=== PATIENT | female | born 1955 | race Caucasian/White ===

== ENCOUNTER 2016-11-01 21:32 | Inpatient (IN) | payer OTHER ==
[~2016-11-01] VITALS: Ht 147.3 cm; Wt 37.5 kg
[~2016-11-01 21:32] MED LIST: SULF-154 PO; Z.0.NO CURRENT MEDS
[2016-11-01 21:42] VITALS: BP 177/79; PULSE 101; RESP 24; TEMP 98.2; O2SAT 100
[2016-11-01] MEDS ORDERED: TRAM50TA PO (21:42)
[2016-11-01] MEDS ORDERED: SODIUM CHLORIDE 0.9% FLUSH 10 ML FLUSH IVF PRN (21:45)
[2016-11-01] MEDS ORDERED: methylPREDNISolone SOD SUCC 125 MG/2 ML VIAL IVP ONE (21:45)
[2016-11-01 22:07] LABS: AUTOMATED NEUTROPHIL # 8.8 TH/MM3 (1.8-7.7); BASOPHIL # 0.1 TH/MM3 (0-0.2); BASOPHIL % 0.5 % (0.0-2.0); EOSINOPHIL % 0.1 % (0.0-4.0); HEMATOCRIT 32.6 % (35.0-46.0); HEMO FLAGS DIFF FINAL; LYMPH % 21.4 % (9.0-44.0); LYMPHOCYTE # 2.6 TH/MM3 (1.0-4.8); MEAN CELL VOLUME 91.6 FL (80.0-100.0); MEAN CORPUSCULAR HEMOGLOBIN 30.5 PG (27.0-34.0); MEAN CORPUSCULAR HGB CONC 33.3 % (32.0-36.0); MONO % 6.1 % (0.0-8.0); NEUT % 71.9 % (16.0-70.0); PLATELET COUNT 433 TH/MM3 (150-450); RED BLOOD COUNT 3.56 MIL/MM3 (4.00-5.30); RED CELL DISTRIBUTION WIDTH 15.7 % (11.6-17.2); WHITE BLOOD COUNT 12.2 TH/MM3 (4.0-11.0)
--- NOTE | 2016-11-01 22:11 | RADRPT ---
EXAM DATE/TIME: 11/01/2016 21:55 [facility] COMPARISON: No previous studies available for comparison. INDICATIONS : Short of breath. MEDICAL HISTORY : None. SURGICAL HISTORY : None. ENCOUNTER: Initial ACUITY: 1 day PAIN SCORE: 6/10 LOCATION: Bilateral chest FINDINGS: Large area of masslike fullness seen in the right hilar region. There is patchy airspace consolidatio n of the right mid and lower lung. Mild patchy infiltrate seen in the left mid lung. There does seem to be some left hilar fullness and left mainstem bronchus narrowing. There is a small right pleural effusion. No effusion seen on the left. No perceptible pneumothorax. Heart size upper limits of normal. CONCLUSION: Bilateral hilar masses and patchy airspace disease, both right larger than left. Also a small right p leural effusion. Jt Jiang MD on November 01, 2016 at 22:07 Board Certified Radiologist. This report was verified electronically.
[2016-11-01] MEDS: RESP: ALBUTEROL 2.5 MG/IPRATROPIUM 0.5 MG NEB (SCH) INH (22:22)
[2016-11-01 22:23] VITALS: O2SAT 100
[2016-11-01] MEDS ORDERED: AZITHROMYCIN INJ 500 MG in SODIUM CHLOR 0.9% 250 ML INJ 250 ML IV ONE (22:30)
[2016-11-01] MEDS ORDERED: cefTRIAXone INJ 1,000 MG in SODIUM CHLORIDE 0.9% INJ 100 ML IV ONE (22:30)
[2016-11-01 22:38] LABS: BICARBONATE 28.2 MEQ/L (21.0-32.0); POTASSIUM 3.7 MEQ/L (3.5-5.1)
[2016-11-01] MEDS ORDERED: HEPARIN SODIUM - IV 10,000 UNITS/10 ML VIAL IV ONE (23:00)
[2016-11-01] MEDS ORDERED: HEPARIN-D5W INJ 250 ML IV SCH (23:00)
[2016-11-01] MEDS ORDERED: LORazepam 2 MG/ML VIAL IV PUSH ONE (23:30)
[2016-11-01 23:41] VITALS: BP 177/79; PULSE 104; RESP 24; O2SAT 100
--- NOTE | 2016-11-01 23:52 | PD ---
HPI Chief Complaint: Respiratory Distress Time Seen by Provider: 21:42 Travel History International Travel<30 days: No Contact w/Intl Traveler<30days: No Traveled to known affect area: No History of Present Illness HPI 61-year-old female comes to the ER due to shortness of breath. She arrives by EMS. She has a smoking history one pack per day. She reports chest pain for today. It has steadily worsened. Onset at rest. A cough is noted along with hot flashes. Cough is productive of white phlegm. Dyspnea on exertion and orthopnea also reported. No similar prior event has occurred. She reports some generalized chest discomfort, moderate, intermittent without provocative factors. PFSH Past Medical History Diminished Hearing: No Hypertension: Yes Immunizations Current: Yes ?: Not Menopausal: Yes : 2 Para: 1 Miscarriage: 0 : 1 Past Surgical History Surgical History: Unable to Obtain Oral Surgery: Yes (ADNOIDS) Social History Alcohol Use: Yes (TWO PER WK) Tobacco Use: Yes (1 PPD) Substance Use: No Allergies-Medications (Allergen,Severity, Reaction): Coded Allergies: *MDRO Multi-Drug Resistant Organism (Verified Allergy, Unknown, 11/01/16) MRSA 12/2012 leg wound Reported Meds & Prescriptions Reported Meds & Active Scripts Active Reported Tramadol (Tramadol HCl) 50 Mg Tab 50 Mg PO Q6H PRN No Current Meds (Miscellaneous Medication) Misc Review of Systems Except as stated in HPI: all other systems reviewed are Neg General / Constitutional: Positive: Other (hot flash) Physical Exam Narrative GENERAL: 61-year-old female pleasant well-nourished well-developed moderate respiratory distress SKIN: Focused skin assessment warm/dry. HEAD: Atraumatic. Normocephalic. EYES: Pupils equal and round. No scleral icterus. No injection or drainage. ENT: No nasal bleeding or discharge. Mucous membranes pink and moist. NECK: Trachea midline. No JVD. CARDIOVASCULAR: Tachycardia. Regular rhythm. RESPIRATORY: Tachypnea. Coarse breath sounds bilaterally. Accessory muscle use. GASTROINTESTINAL: Abdomen soft, non-tender, nondistended. Hepatic and splenic margins not palpable. MUSCULOSKELETAL: No obvious deformities. No clubbing. No cyanosis. No edema. NEUROLOGICAL: Awake and alert. No obvious cranial nerve deficits. Motor grossly within normal limits. Conversational dyspnea PSYCHIATRIC: Appropriate mood and affect; insight and judgment normal. Data Data Last Documented VS Vital Signs Date Time Temp Pulse Resp B/P Pulse Ox O2 Delivery O2 Flow Rate FiO2 11/02/16 01:50 103 24 151/71 94 Nasal Cannula 3 11/01/16 21:42 98.2 Vital signs reviewed Orders Complete Blood Count With Diff (11/01/16 21:42) Basic Metabolic Panel (Bmp) (11/01/16 21:42) Iv Access Insert/Monitor (11/01/16 21:42) Ecg Monitoring (11/01/16 21:42) Oximetry (11/01/16 21:42) Oxygen Administration (11/01/16 21:42) Chest, Single Ap (11/01/16 21:42) Sodium Chloride 0.9% Flush (Ns Flush) (11/01/16 21:45) Methylprednisolone So Succ Inj (Solumedr (11/01/16 21:45) Albuterol-Ipratropium Neb (Duoneb Neb) (11/01/16 21:45) Troponin I (11/01/16 21:45) Blood Culture (11/01/16 22:29) Ceftriaxone Inj (Rocephin Inj) (11/01/16 22:30) Azithromycin Inj (Zithromax Inj) (11/01/16 22:30) B-Type Natriuretic Peptide (11/01/16 22:29) Troponin I (11/01/16 22:29) Heparin Infusion PA.Q1H (11/01/16 22:56) Heparin Inj (Heparin Inj) (11/01/16 23:00) Heparin Inj (Heparin Inj) (11/02/16 05:00) Heparin Inj (Heparin Inj) (11/02/16 05:00) Heparin-D5w Inj (Heparin-D5w Inj) (11/01/16 23:00) Cbc No Diff, Includes Plts (11/04/16 06:00) Act Partial Throm Time (Ptt) (11/02/16 05:56) Occult Blood (Hemoccult) Stool (11/01/16 22:56) Lorazepam Inj (Ativan Inj) (11/01/16 23:30) Furosemide Inj (Lasix Inj) (11/02/16 00:15) Nitroglycerin 2% Oint (Nitroglycerin 2% (11/02/16 00:15) Ct Pulmonary Angiogram (11/02/16 22:30) Iohexol 350 Inj (Omnipaque 350 Inj) (11/02/16 00:21) Admit Order (Ed Use Only) (11/02/16 02:43) Labs Laboratory Tests Test 11/01/16 11/01/16 21:45 22:50 White Blood Count 12.2 TH/MM3 Red Blood Count 3.56 MIL/MM3 Hemoglobin 10.9 GM/DL Hematocrit 32.6 % Mean Corpuscular Volume 91.6 FL Mean Corpuscular Hemoglobin 30.5 PG Mean Corpuscular Hemoglobin 33.3 % Concent Red Cell Distribution Width 15.7 % Platelet Count 433 TH/MM3 Mean Platelet Volume 9.1 FL Neutrophils (%) (Auto) 71.9 % Lymphocytes (%) (Auto) 21.4 % Monocytes (%) (Auto) 6.1 % Eosinophils (%) (Auto) 0.1 % Basophils (%) (Auto) 0.5 % Neutrophils # (Auto) 8.8 TH/MM3 Lymphocytes # (Auto) 2.6 TH/MM3 Monocytes # (Auto) 0.8 TH/MM3 Eosinophils # (Auto) 0.0 TH/MM3 Basophils # (Auto) 0.1 TH/MM3 CBC Comment DIFF FINAL Differential Comment Sodium Level 132 MEQ/L Potassium Level 3.7 MEQ/L Chloride Level 93 MEQ/L Carbon Dioxide Level 28.2 MEQ/L Anion Gap 11 MEQ/L Blood Urea Nitrogen 6 MG/DL Creatinine 0.47 MG/DL Estimat Glomerular Filtration 134 ML/MIN Rate Random Glucose 137 MG/DL Calcium Level 8.9 MG/DL Troponin I 0.42 NG/ML B-Type Natriuretic Peptide 1177 PG/ML MDM Medical Decision Making Medical Screen Exam Complete: Yes Emergency Medical Condition: Yes Medical Record Reviewed: Yes Differential Diagnosis NSTEMI, unstable angina, coronary vasospasm, PE, PTX, aortic dissection, pericarditis, myocarditis, endocarditis, PNA, esophageal disease, aneurysm, musculoskeletal etiologies, anxiety, cocaine/sympathomimetic abuse Narrative Course CBC & BMP Diagram 11/01/16 21:45 BNP 1177 Troponin 0.49 EKG reveals a sinus tachycardia with a rate of 101 ST changes are noted in the precordial leads Last [address] Angiography 11/02/160 Signed Impressions: Service Date/Time: Wednesday, November 02, 2016 00:13 - CONCLUSION: Right lower lobe masses in addition to the extensive metastatic adenopathy within the mediastinum and huge mass or malignant adenopathy in the right hilum. Significant mass effect on the main pulmonary artery and right-sided pulmonary arteries in addition to right main bronchus. Yue Hickey MD Chest X-Ray 11/01/162 Signed Impressions: Service Date/Time: Tuesday, November 01, 2016 21:55 - CONCLUSION: Bilateral hilar masses and patchy airspace disease, both right larger than left. Also a small right pleural effusion. Jt Jiang MD The patient will be admitted due to shortness of breath presumably secondary to intrathoracic masses which are presumably neoplastic in nature. The case was discussed with Dr. Sanchez of cardiothoracic surgery who will evaluate the patient however reports there is no indication for an emergent cardiothoracic surgical intervention at this time with radiation oncology and pulmonology considered appropriate. Case discussed with Dr. Richards of [facility]. Case d/w Dr Doss of who accepted the patient. She was advised of her diagnosis just prior to time of admission. Diagnosis Primary Impression: Dyspnea and respiratory abnormalities Additional Impression: Lung mass Admitting Information Admitting Physician Requests: Admit Roscoe Gomes MD Nov 01, 2016 23:52
[2016-11-02] VITALS (18 sets, daily range): BP systolic 99–156; BP diastolic 56–84; PULSE 91–136; RESP 18–28; TEMP 98–98.7; O2SAT 94–100
[2016-11-02] MEDS ORDERED: NITROGLYCERIN 2% OINT 1 GM PACKET TOP ONE (00:15)
[2016-11-02] MEDS ORDERED: FUROSEMIDE 40 MG/4 ML VIAL IV PUSH ONE (00:15)
[2016-11-02] MEDS ORDERED: IOHEXOL 350 MG/ML 10 ML VIAL (for RAD DIAG) IV ONE (00:21)
--- NOTE | 2016-11-02 00:35 | RADRPT ---
EXAM DATE/TIME: 11/02/2016 00:13 [facility] COMPARISON: No previous studies available for comparison. INDICATIONS : Short of breath. IV CONTRAST: 60 cc Omnipaque 350 (iohexol) IV RADIATION DOSE: 19.86 CTDIvol (mGy) MEDICAL HISTORY : None SURGICAL HISTORY : Right rib resection. ENCOUNTER: Initial ACUITY: 1 day PAIN SCALE: 0/10 LOCATION: Bilateral chest TECHNIQUE: Volumetric scanning of the chest was performed using a pulmonary embolism protocol MIP images were re constructed. Using automated exposure control and adjustment of the mA and/or kV according to patien t size, radiation dose was kept as low as reasonably achievable to obtain optimal diagnostic quality images. FINDINGS: There is no evidence for PE for technique. There is huge malignant mass or adenopathy in the sub carinal area which extends to the right hilum and causes significant mass effect on the right main pu lmonary artery in addition to the upper lobe lower lobe and middle lobe pulmonary arteries compromisi ng the main pulmonary artery but almost 70%. These are almost certainly malignant and there is also a dditional malignant adenopathy in the AP window, precarinal areas with small lymph nodes in the left hilum as well. There are 2 separate masses in the right lower lobe measuring 3.8 cm and 2.8 cm in siz e with additional tiny nodules in the right lower lobe as well. All of these are highly suspicious fo r malignant masses. Vague parenchymal process is present in left upper lobe may represent postobstruc tive pneumonitis. There is significant mass effect on the right main bronchus and mild mass effect on the left main bronchus. CONCLUSION: Right lower lobe masses in addition to the extensive metastatic adenopathy within the mediastinum and huge mass or malignant adenopathy in the right hilum. Significant mass effect on the main pulmonary artery and right-sided pulmonary arteries in addition to right main bronchus. Yue Hickey MD on November 02, 2016 at 0:28 Board Certified Radiologist. This report was verified electronically.
[2016-11-02] MEDS ORDERED: CHLORHEXIDINE GLUCONATE 2 % 1 PACK (2 CLOTHS) TOP PRN (02:45)
[2016-11-02] MEDS ORDERED: SODIUM CHLORIDE 0.9% FLUSH 10 ML FLUSH PRN (02:45)
[2016-11-02] MEDS ORDERED: ACETAMINOPHEN 325 MG TAB PO PRN (02:45)
[2016-11-02] MEDS ORDERED: MAGNESIUM HYDROXIDE SUSP 30 ML CUP PO PRN (02:45)
[2016-11-02] MEDS: SODIUM CHLOR 0.9% 1000 ML INJ 1,000 ML IV SCH ×2 (02:45→14:40)
[2016-11-02] MEDS ORDERED: PROCHLORPERAZINE 25 MG SUPP RECTAL PRN (02:45)
[2016-11-02] MEDS ORDERED: METOCLOPRAMIDE HCL 10 MG/2 ML VIAL IV PRN (02:45)
[2016-11-02] MEDS: HEPARIN SODIUM - SQ 10,000 UNITS/ML VIAL SQ SCH ×2 (02:45→10:45)
[2016-11-02] MEDS ORDERED: BISACODYL 10 MG SUPP RECTAL PRN (02:45)
[2016-11-02] MEDS ORDERED: LACTULOSE SYRUP 20 GM/30 ML CUP PO PRN (02:45)
[2016-11-02] MEDS ORDERED: SENNOSIDES 8.6 MG TAB PO PRN (02:45)
[2016-11-02] MEDS ORDERED: ONDANSETRON HCL 4 MG/2 ML VIAL IV PRN (02:45)
[2016-11-02] MEDS ORDERED: RESP: ALBUTEROL 2.5 MG/IPRATROPIUM 0.5 MG NEB (PRN) INH (02:45)
[2016-11-02] MEDS ORDERED: ZOLPIDEM TARTRATE 5 MG TAB PO PRN (02:45)
[2016-11-02] MEDS ORDERED: MISCELLANEOUS NURSING INFORMATION XX SCH (02:45)
--- NOTE | 2016-11-02 02:52 | HHI.HP ---
HPI Service Critical Care Medicine Primary Care Physician No Primary Care Physician Admission Diagnosis Lung Masses, Dyspnea Diagnosis: Travel History International Travel<30 Days: No Contact w/Intl Traveler <30 Da: No Traveled to Known Affected Are: No History of Present Illness 61-year-old female presents due to shortness of breath. She arrives by EMS. She has a smoking history one pack per day. She reports chest pain for today. Her shortness of breath has steadily worsened. A cough is noted along with hot flashes. Cough is productive of white phlegm. She has no similar history prior to this event. CT of the chest revealed Right lower lobe masses in addition to the extensive metastatic adenopathy within the mediastinum and huge mass or malignant adenopathy in the right hilum. Significant mass effect on the main pulmonary artery and right-sided pulmonary arteries in addition to right main bronchus. Review of Systems Constitutional: DENIES: Diaphoretic episodes, Fatigue, Fever, Weight gain, Weight loss, Chills, Dizziness, Change in appetite, Night Sweats Endocrine: DENIES: Abnorml menstrual pattern, Heat/cold intolerance, Polydipsia , Polyuria, Polyphagia Eyes: DENIES: Blurred vision, Diplopia, Eye inflammation, Eye pain, Vision loss , Photosensitivity, Double Vision Ears, nose, mouth, throat: DENIES: Tinnitus, Hearing loss, Vertigo, Nasal discharge, Oral lesions, Throat pain, Hoarseness, Ear Pain, Running Nose, Epistaxis, Sinus Pain, Toothache, Odynophagia Respiratory: COMPLAINS OF: Cough, Sputum production, Shortness of breath, DENIES: Apneas, Snoring, Wheezing, Hemoptysis Cardiovascular: COMPLAINS OF: Chest pain, Dyspnea on Exertion, DENIES: Palpitations, Syncope, PND, Lower Extremity Edema, Orthopnea, Claudication Gastrointestinal: DENIES: Abdominal pain, Black stools, Bloody stools, Constipation, Diarrhea, Nausea, Vomiting, Difficulty Swallowing, Anorexia Genitourinary: DENIES: Abnormal vaginal bleeding, Dysmenorrhea, Dyspareunia, Sexual dysfunction, Urinary frequency, Urinary incontinence, Urgency, Hematuria , Dysuria, Nocturia, Vaginal discharge Musculoskeletal: DENIES: Joint pain, Muscle aches, Stiffness, Joint Swelling, Back pain, Neck pain Integumentary: DENIES: Abnormal pigmentation, Pruritus, Rash, Nail changes, Breast masses, Breast skin changes, Nipple discharge Hematologic/lymphatic: DENIES: Bruising, Lymphadenopathy Immunologic/allergic: DENIES: Eczema, Urticaria Neurologic: DENIES: Abnormal gait, Headache, Localized weakness, Paresthesias, Seizures, Speech Problems, Tremor, Poor Balance Psychiatric: DENIES: Anxiety, Confusion, Mood changes, Depression, Hallucinations, Agitation, Suicidal Ideation, Homicidal Ideation, Delusions Past Family Social History Allergies: Coded Allergies: *MDRO Multi-Drug Resistant Organism (Verified Allergy, Unknown, 11/01/16) MRSA 12/2012 leg wound Past Medical History Hypertension Past Surgical History Oral Surgery Adenoids removal Reported Medications Reported Meds & Active Scripts Active Reported Tramadol (Tramadol HCl) 50 Mg Tab 50 Mg PO Q6H PRN No Current Meds (Miscellaneous Medication) Misc Active Ordered Medications Current Medications Medications (Trade) Dose Ordered Sig/Estela Route PRN Reason Start Time Stop Time Status Last Admin Dose Admin Sodium Chloride 2 ml 2 ml UNSCH PRN IVF FLUSH AFTER USING IV ACCESS 11/01/16 21:45 11/01/16 22:29 Sodium Chloride (NS 1000 ml Inj) 1,000 ml @ 84 mls/hr [id number] IV 11/02/16 02:45 11/02/16 02:45 Sodium Chloride (NS Flush) 2 ml UNSCH PRN .XX FLUSH AFTER USING IV ACCESS 11/02/16 02:45 Sodium Chloride (NS Flush) 2 ml BID IV FLUSH 11/02/16 09:00 Acetaminophen (Tylenol) 650 mg Q6H PRN PO PAIN 1-5 AND/OR FEVER >101F 11/02/16 02:45 Morphine Sulfate (Morphine Inj) 2 mg Q2H PRN IV PAIN SCALE 6 TO 10 11/02/16 02:45 Famotidine (Pepcid Inj) 20 mg Q12HR IV PUSH 11/02/16 09:00 Lorazepam (Ativan Inj) 2 mg Q4H PRN IV Agitation/Sedation 11/02/16 02:45 Ondansetron HCl (Zofran Inj) 4 mg Q6H PRN IV NAUSEA OR VOMITING 11/02/16 02:45 Metoclopramide HCl (Reglan Inj) 10 mg Q6H PRN IV NAUSEA OR VOMITING 11/02/16 02:45 Prochlorperazine (Compazine Supp) 25 mg Q12H PRN RECTAL NAUSEA OR VOMITING 11/02/16 02:45 Zolpidem Tartrate (Ambien) 5 mg HS PRN PO INSOMNIA 11/02/16 02:45 Heparin Sodium (Porcine) (Heparin Inj) 5,000 units Q8H SQ 11/02/16 02:45 Miscellaneous Information 1 Q361D XX 11/02/16 02:45 Chlorhexidine Gluconate (Chlorhexidine 2% Cloth) 3 pack Taper DAILY@04 TOP 11/02/16 04:00 10/29/17 03:59 Chlorhexidine Gluconate (Chlorhexidine 2% Cloth) 3 pack UNSCH PRN TOP HYGIENIC CARE 11/02/16 02:45 Senna/Docusate Sodium (Jonelle-Colace) 1 tab BID PO 11/02/16 09:00 Magnesium Hydroxide (Milk Of Magnesia Liq) 30 ml Q12H PRN PO MILD - MODERATE CONSTIPATION 11/02/16 02:45 Sennosides (Senokot) 17.2 mg Q12H PRN PO MODERATE - SEVERE CONSTIPATION 11/02/16 02:45 Bisacodyl (Dulcolax Supp) 10 mg DAILY PRN RECTAL SEVERE CONSITIPATION 11/02/16 02:45 Lactulose (Lactulose Liq) 30 ml DAILY PRN PO SEVERE CONSITIPATION 11/02/16 02:45 Family History Noncontributory Social History Alcohol Use: Yes (TWO PER WK) Tobacco Use: Yes (1 PPD) Substance Use: No Physical Exam Vital Signs Vital Signs Date Time Temp Pulse Resp B/P Pulse Ox O2 Delivery O2 Flow Rate FiO2 11/02/16 01:50 103 24 151/71 94 Nasal Cannula 3 11/02/16 00:45 103 24 116/58 98 Nasal Cannula 3 11/01/16 23:41 104 24 177/79 100 Nasal Cannula 11/01/16 22:46 80 88 Non-Rebreather 11/01/16 22:23 100 Nasal Cannula 3.00 11/01/16 21:49 100 Non-Rebreather 8 11/01/16 21:42 98.2 101 24 177/79 100 Physical Exam GENERAL: Cachectic, sick, and pale pleasant female in no acute distress SKIN: Warm and dry. HEAD: Normocephalic. EYES: No scleral icterus. No injection or drainage. NECK: Supple, trachea midline. No JVD or lymphadenopathy. CARDIOVASCULAR: Regular rate and rhythm without murmurs, gallops, or rubs. RESPIRATORY: Breath sounds equal bilaterally. No accessory muscle use. GASTROINTESTINAL: Abdomen soft, non-tender, nondistended. MUSCULOSKELETAL: No cyanosis, or edema. BACK: Nontender without obvious deformity. No CVA tenderness. EXTREMITIES: No clubbing cyanosis or edema Laboratory Laboratory Tests Test 11/01/16 11/01/16 21:45 22:50 White Blood Count 12.2 Red Blood Count 3.56 Hemoglobin 10.9 Hematocrit 32.6 Mean Corpuscular Volume 91.6 Mean Corpuscular Hemoglobin 30.5 Mean Corpuscular Hemoglobin 33.3 Concent Red Cell Distribution Width 15.7 Platelet Count 433 Mean Platelet Volume 9.1 Neutrophils (%) (Auto) 71.9 Lymphocytes (%) (Auto) 21.4 Monocytes (%) (Auto) 6.1 Eosinophils (%) (Auto) 0.1 Basophils (%) (Auto) 0.5 Neutrophils # (Auto) 8.8 Lymphocytes # (Auto) 2.6 Monocytes # (Auto) 0.8 Eosinophils # (Auto) 0.0 Basophils # (Auto) 0.1 CBC Comment DIFF FINAL Differential Comment Sodium Level 132 Potassium Level 3.7 Chloride Level 93 Carbon Dioxide Level 28.2 Anion Gap 11 Blood Urea Nitrogen 6 Creatinine 0.47 Estimat Glomerular Filtration 134 Rate Random Glucose 137 Calcium Level 8.9 Troponin I 0.42 B-Type Natriuretic Peptide 1177 Date/Time Procedure Status Source Growth 11/01/16 23:15 Aerobic Blood Culture Received Blood Peripheral Pending 11/01/16 23:15 Anaerobic Blood Culture Received Blood Peripheral Pending Result Diagram: 11/01/16214411/01/162144 Imaging Last [address] Angiography 11/02/162229 Signed Impressions: Service Date/Time: Wednesday, November 02, 2016 00:13 - CONCLUSION: Right lower lobe masses in addition to the extensive metastatic adenopathy within the mediastinum and huge mass or malignant adenopathy in the right hilum. Significant mass effect on the main pulmonary artery and right-sided pulmonary arteries in addition to right main bronchus. Yue Hickey MD Chest X-Ray 11/01/162141 Signed Impressions: Service Date/Time: Tuesday, November 01, 2016 21:55 - CONCLUSION: Bilateral hilar masses and patchy airspace disease, both right larger than left. Also a small right pleural effusion. Jt Jiang MD Assessment and Plan Assessment and Plan Respiratory failure - Lung mass - DuoNeb scheduled and when necessary - IV steroids Newly diagnosed lung mass - Compromise of pulmonary artery and mainstem bronchus - Pulmonary consultation - Radiation oncology consultation - Further workup per victim advocate History of hypertension - Currently normotensive - Telemetry Elevated troponins - Borderline troponin leak - Possibly due to respiratory compromise - Cardiology consult DVT GI prophylaxis - Subcutaneous heparin and Pepcid Critical Care: The total critical care time was 35 minutes. Time to perform other separately billable procedures was not included in the critical care time. Edilson Doss MD Nov 02, 2016 02:52
[2016-11-02] MEDS ORDERED: NICOTINE 21 MG/24 HR PATCH T-DERMAL ONE (03:15)
[2016-11-02] MEDS: RESP: ALBUTEROL 2.5 MG/IPRATROPIUM 0.5 MG NEB (SCH) INH ×4 (04:34→22:00)
[2016-11-02 04:35] LABS: INTERNATIONAL NORMALIZED RATIO 1.1 RATIO; PROTHROMBIN TIME - PATIENT 11.8 SEC (9.8-11.6)
[2016-11-02] MEDS ORDERED: HEPARIN SODIUM - IV 10,000 UNITS/10 ML VIAL IV PRN ×2 (05:00)
[2016-11-02 05:24] LABS: APTT (PATIENT) 38.3 SEC (24.3-30.1)
[2016-11-02] MEDS ORDERED: ATEN50TA PO (05:51)
[2016-11-02] MEDS: MORPHINE SULFATE 4 MG/ML INJ IV PRN ×2 (06:11→21:46)
--- NOTE | 2016-11-02 07:48 | EKG ---
Date Performed: 11/02/2016 Time Performed: 06:03:34 PTAGE: 61 years EKG: ATRIAL FIBRILLATION WITH RAPID VENTRICULAR RESPONSE VOLTAGE CRITERIA FOR LVH Nonspecific ST -T wave changes NO PREVIOUS TRACING DOCTOR: Saravanan Hull Interpretating Date/Time 11/02/2016 07:48:19
--- NOTE | 2016-11-02 07:56 | EKG ---
Date Performed: 11/01/2016 Time Performed: 21:46:47 PTAGE: 61 years EKG: SINUS TACHYCARDIA LEFT ATRIAL ENLARGEMENT SEPTAL MYOCARDIAL INFARCTION Nonspecific ST-T wav e changes NO PREVIOUS TRACING DOCTOR: Saravanan Hull Interpretating Date/Time 11/02/2016 07:54:41
[2016-11-02] MEDS: DOCUSATE SODIUM 50 MG/SENNA 8.6 MG TAB PO SCH ×2 (09:00→21:00)
[2016-11-02] MEDS ORDERED: DIGOXIN 0.5 MG/2 ML VIAL IV PUSH ONE (09:15)
[2016-11-02] MEDS: FAMOTIDINE 20 MG/2 ML VIAL IV PUSH SCH ×2 (09:35→21:42)
[2016-11-02] MEDS: SODIUM CHLORIDE 0.9% FLUSH 10 ML FLUSH IV FLUSH SCH ×2 (09:35→21:41)
[2016-11-02] MEDS ORDERED: METOPROLOL TARTRATE 5 MG/5 ML VIAL IV PUSH ONE (10:00)
[2016-11-02] MEDS ORDERED: DEXTROSE 50% IN WATER 50 ML VIAL(D50) IV PRN (11:15)
[2016-11-02] MEDS ORDERED: GLUCAGON 1 MG/ML VIAL OTHER PRN (11:15)
[2016-11-02] MEDS: INSULIN NovoLIN REGULAR SUPPLEMENTAL SCALE SQ SCH ×2 (12:00→18:00)
[2016-11-02] MEDS ORDERED: ASPIRIN 325 MG TAB PO ONE (12:00)
[2016-11-02 12:43] LABS: APTT (PATIENT) 33.1 SEC (24.3-30.1)
--- NOTE | 2016-11-02 13:00 | MB ---
cc: COLIN SARKAR MD DATE OF CONSULTATION 11/02/2016 REASON FOR CONSULTATION Elevated troponin. HISTORY OF PRESENT ILLNESS Ms. Perales is a 61-year-old female who presented to the hospital with progressive shortness of breath. She was found to be in A-fib/RVR. She was treated with some IV metoprolol with some improvement. Cardiac enzymes did reveal an elevated troponin and cardiology was subsequently consulted. PAST MEDICAL HISTORY Significant for - 1. MRSA of a leg wound. 2. Hypertension. SOCIAL HISTORY The patient does have occasional alcohol. She does smoke one pack per day. REVIEW OF SYSTEMS Except as mentioned in the HPI, all 12 systems are negative. FAMILY HISTORY Noncontributory. PHYSICAL EXAMINATION VITAL SIGNS: 103, 18, 125/60. IN GENERAL: She is an emaciated female who appears much older than her stated age. She is in no apparent distress. NECK: Her neck is free from JVD. LUNGS: Scattered rhonchi. CARDIOVASCULAR EXAMINATION: She has a normal S1 and S2. She is a bit tachycardic. ABDOMEN: Soft. EXTREMITIES: Free from edema. CT CHEST From 11/02/2016 shows a huge mass or malignant adenopathy in the right hilum with right lower lobe masses. The mass does effect the pulmonary artery and right mainstem bronchus. LABORATORY VALUE Significant for a white count of 12.2. Serial troponins of 0.42/0.52 with a BNP of 1177. IMPRESSION AND PLAN Atrial fibrillation with rapid ventricular rate - The patient did respond to IV medications which included metoprolol and digoxin. Hopefully she will be able to tolerate low-dose metoprolol. Her CHADS-VASc score 2 with 1 point for being female and 1 point for hypertension. Anticoagulation would typically be suggested. She would have fairly extensive risk given her anemia and this large mass for bleeding complications. Thus, long-term anticoagulation is somewhat controversial. She is currently on a heparin drip. Lung mass. - This will be managed by the primary team. Hypertension - Metoprolol as above. Colin Sarkar M.D. SYDNEE/JORGE /11:49 AM /12:38 PM
[2016-11-02] MEDS: PIPERACIL-TAZO 4.5 GM PREMIX 100 ML IV SCH (13:33)
[2016-11-02] MEDS: methylPREDNISolone SOD SUCC 40 MG/1 ML VIAL IV PUSH SCH ×2 (13:33→21:43)
[2016-11-02 17:47] LABS: AUTOMATED NEUTROPHIL # 12.5 TH/MM3 (1.8-7.7); BASOPHIL % 0.3 % (0.0-2.0); EOSINOPHIL # 0.2 TH/MM3 (0-0.4); EOSINOPHIL % 0.9 % (0.0-4.0); HEMATOCRIT 31.6 % (35.0-46.0); LYMPH % 2.3 % (9.0-44.0); LYMPHOCYTE # 0.4 TH/MM3 (1.0-4.8); MEAN CELL VOLUME 92.9 FL (80.0-100.0); MEAN CORPUSCULAR HEMOGLOBIN 29.9 PG (27.0-34.0); MEAN CORPUSCULAR HGB CONC 32.2 % (32.0-36.0); MONO % 21.4 % (0.0-8.0); NEUT % 75.1 % (16.0-70.0); PLATELET COUNT 420 TH/MM3 (150-450); RED CELL DISTRIBUTION WIDTH 16.1 % (11.6-17.2); WHITE BLOOD COUNT 16.6 TH/MM3 (4.0-11.0)
[2016-11-02 17:50] LABS: HEMO FLAGS AUTO DIFF
[2016-11-02 18:08] LABS: ALT (GPT) 12 U/L (10-53); ANION GAP 10 MEQ/L (5-15); AST (GOT) 47 U/L (15-37); BICARBONATE 26.5 MEQ/L (21.0-32.0); BLOOD UREA NITROGEN 8 MG/DL (7-18); CHLORIDE 98 MEQ/L (98-107); GLOMERULAR FILTRATION RATE 157 ML/MIN (>89); MAGNESIUM 1.7 MG/DL (1.5-2.5); SODIUM (NA) 134 MEQ/L (136-145)
[2016-11-02 18:09] LABS: POTASSIUM 4.3 MEQ/L (3.5-5.1)
[2016-11-02 18:12] LABS: ALKALINE PHOSPHATASE 131 U/L (45-117); TOTAL BILIRUBIN ADULT 0.4 MG/DL (0.2-1.0)
[2016-11-02 18:13] LABS: PLATELET ESTIMATE SMEAR HIGH (NORMAL); PLATELET MORPHOLOGY NORMAL (NORMAL); SCAN/DIFF AUTO DIFF CONFIRMED
--- NOTE | 2016-11-02 18:22 | MB ---
cc: HARINI WAN M.D., JAN MD DATE OF CONSULTATION 11/02/2016 DATE OF 1955 HISTORY OF PRESENT ILLNESS This is a 61-year-old patient with a long smoking history who was admitted to the hospital with what appears to be a short onset of symptoms of increasing shortness of breath. Unfortunately she is a poor historian but she indicates that she has had anterior chest pain for some time. This has progressed to increasing shortness of breath. She has a cough that appears to be largely nonproductive and she denies hemoptysis. Because of increasing shortness of breath she came into the emergency room. At that time she was assessed and a CT pulmonary angiogram was performed. This revealed right lower lobe masses in addition to extensive metastatic adenopathy within the mediastinum with a huge mass or malignant adenopathy in the right hilum. There is significant mass effect on the main pulmonary artery and right-sided pulmonary arteries in addition to the right main bronchus. There are two separate masses in the right lower lobe measuring 3.8 and 2.8 cm in size. The main pulmonary artery is compressed by almost 70%. This lady has been admitted to the hospital and stabilized. She has not yet been seen by pulmonary and she has not had a biopsy or tissue obtained. She denies other symptoms that would be suggestive of metastatic disease. ALLERGIES None known. PAST MEDICAL AND SURGICAL HISTORY Includes: 1. History of hypertension. 2. She has had previous adenoid surgery. 3. And she has had a previous wound infection with MRSA organism. This was in 2012. MEDICATIONS ON ADMISSION Include Tramadol. FAMILY HISTORY AND SOCIAL HISTORY This lady lives locally with her daughter. She has a 3-year-old grandchild. She has lived in this area since grade 4. She does smoke and has smoked until this admission. She denies significant alcohol use. REVIEW OF SYSTEMS CONSTITUTIONAL: She admits to weight loss of 15-20 pounds since . She denies fevers, sweats. EYES: She denies blurred vision or eye pain. EARS, NOSE, AND THROAT: Denies tinnitus, hearing loss or throat pain. RESPIRATORY: She does have cough with clear sputum. No hemoptysis and shortness of breath. CARDIOVASCULAR: She has anterior chest pain and shortness of breath. Denies palpitations or syncope. GASTROINTESTINAL: Denies abdominal pain, diarrhea, melena or bloody stool. GENITOURINARY: Denies dysuria, hematuria, urgency or incontinence. MUSCULOSKELETAL: Denies arthritic or back pain. HEMATOLOGIC: Denies bruising or bleeding. NEUROLOGIC: Denies abnormal gait, weakness, paresthesias, seizures or strokes. PSYCHIATRIC: Denies depression or mood swings. PHYSICAL EXAMINATION GENERAL: Today on exam we have an alert, oriented female resting comfortably in bed and in no immediate distress. VITAL SIGNS: Her pulse was 95, respiratory rate 18, blood pressure 156/73. Her O2 sat on room air was 98% while resting comfortably in bed. HEENT: She was pale and somewhat cachectic. There was no jaundice. Her conjunctive and eyelids are normal. Oral cavity was normal. LYMPHATICS: There is no adenopathy in her head and neck. LUNGS: She has markedly decreased air entry in to her right lung. Her left lung field is clear. CARDIOVASCULAR: She had a normal first and second heart sound without murmurs, rubs or bruits. ABDOMEN: There are no abdominal masses or tenderness, no hepatosplenomegaly. EXTREMITIES: No ankle edema. Power testing in all limbs was normal. IMAGING Review of data, I have been able to pull up this lady's us pulmonary angiogram and review this on the monitor and I can confirm the findings that have been indicated above. She has a very large mass involving the right hilum, compressing the pulmonary artery on the right. In association with this. She has a separate right lower lobe lung mass as dictated above. This is very extensive disease involving the right lung with significant compression of the pulmonary artery. DISCUSSION I have reviewed the findings with the patient. I have told her that we strongly believe she has cancer and that, however, we do need to confirm this with tissue. She is scheduled to see a hot tamale worker and I would anticipate consideration for a needle biopsy but we will wait their recommendation. With respect to treatment because of the size of the mass and the compression of the pulmonary artery, I believe serious consideration should be given to radiation treatment and hopefully combination radiation treatment and chemotherapy. I see that a consult has been scheduled for medical oncology and we will wait their input with respect to combined treatment. Unfortunately she has very advanced disease. Her prognosis is poor. I am concerned since she had fairly rapid progression of her shortness of breath over the past week, that she may deteriorate so I intend on simulating her before we have final pathology so that we can have most of our calculations complete and when pathology is available we should be in a position to start treatment promptly. I have discussed this with her and she is comfortable with that approach. I will keep following her while she is in the hospital and make any recommendations as new data comes available. Thank you again for asking us to see this patient. MD WOLF Francisco/ITZEL /5:40 PM /5:59 PM
--- NOTE | 2016-11-02 19:36 | MB ---
cc: COLBY CLARK DATE OF CONSULTATION 11/02/2016 DATE OF 1955 REASON FOR CONSULTATION Patient with multiple lung lesions. CHIEF COMPLAINT Admitted with weakness, heart palpitations and chest pain. HISTORY OF PRESENT ILLNESS This is a 61-year-old female with an extensive history of tobacco abuse, hypertension who was brought to the emergency department with complaints of chest pain, shortness of breath, cough productive of white phlegm, night sweats and weight loss. On admission she underwent imaging of the chest. This was a CT angiogram to rule out pulmonary embolism. No pulmonary embolism was seen, however, there was a huge malignant mass in the subcarinal area which extended into the right hilum causing significant mass effect on the right main pulmonary artery in addition to the upper lobe, lower lobe and middle lobe pulmonary arteries comprising the main pulmonary artery by almost 70%. There was additional malignant adenopathy in the AP window precarinal area with small lymph nodes in the left hilum. There were two separate masses in the right lower lobe measuring 3.8 cm and 2.8 cm in size with additional tiny nodule in the right lower lobe. There was significant mass effect on the right main bronchus and mild mass effect on the left main bronchus. The patient is currently undergoing cardiac workup for atrial fibrillation. She has been seen by cardiology. The patient responded to IV metoprolol and digoxin. She will need anticoagulation. Oncology has been consulted to make recommendations in this patient who appears to have bronchogenic carcinoma with significant tumor load. REVIEW OF SYSTEMS A comprehensive 14-point review of systems was completed which is negative except as described in the HPI. PAST MEDICAL HISTORY 1. Hypertension. 2. Tobacco abuse. 3. History of wound infection with MRSA in 2012. PAST SURGICAL HISTORY History of adenoid surgery. MEDICATIONS 1. Metoprolol 12.5 mg p.o. q.12h. 2. Solu-Medrol 60 mg IV q.8 h. 3. Zosyn IV q.6h. 4. Insulin sliding scale. 5. Famotidine 20 mg IV q.12h. 6. Senna and Docusate p.o. b.i.d. 7. DuoNeb treatments q.6h. 8. Morphine injection 2 mg IV q.2 h. 9. Zofran 4 mg IV q.6 h p.r.n. 10. Reglan 10 mg IV q.6 h p.r.n. 11. Compazine 25 mg q.12 h p.r.n. 12. Ambien 5 mg p.o. q.h.s. p.r.n. ALLERGIES NO KNOWN DRUG ALLERGIES. SOCIAL HISTORY She lives with her daughter. She has a 3-year-old grandchild. She has an extensive history of smoking of greater than 30 pack-years. She does not drink alcohol. FAMILY HISTORY The family history was reviewed and it is noncontributory to this admission. PHYSICAL EXAMINATION VITAL SIGNS: Blood pressure is 156/73, pulse is in the 90s, temperature is 98.6, O2 sats are 98% on room air. GENERAL: Cachectic, ill-appearing female in mild distress. HEENT: Pupils are equal, round, reactive to light. EOMI. No oral thrush. No oral lesion. NECK: Supple. No JVD, no bruits. No lymphadenopathy. CHEST: Has by diffuse rhonchi which is scattered. Some expiratory wheezing in the bilateral upper garrett on expiration. CARDIOVASCULAR: Irregularly irregular heart rate. ABDOMEN: Soft, nontender, nondistended. Bowel sounds are present. EXTREMITIES: Without any edema, erythema or cyanosis. SKIN: Without any petechiae, lesion or bruises. NEUROLOGIC: No focal deficits. PSYCHIATRIC: Mood and affect are appropriate. LYMPH NODE: Exam was no lymphadenopathy appreciated. LABORATORY DATA WBC 16.6, hemoglobin 10.2, MCV is 92.9, platelet count 420. Serum chemistries show sodium 134, potassium 4.3, chloride 98, BUN 8, creatinine 0.41, calcium 8.8, phosphorus 2.2, total bilirubin 0.4, AST is 47, ALT is 12, alk phos is 131. BNP is 746. Total protein 7.1. Albumin is 2.5. IMAGING STUDIES Were reviewed in the EMR and discussed in the HPI above. ASSESSMENT/PLAN This is a 61-year-old female who has with a history of tobacco abuse and hypertension who presents to the emergency room with chest pain, shortness of breath, anorexia, cachexia, weight loss and night sweats. She also has a cough productive of clear sputum. She was found to have multiple masses in her lung based on the imaging. I have been consulted to make further recommendations. 1. Right lower lobe mass with extensive metastatic adenopathy within the mediastinum and a large mass in the right hilum. Also significant mass effect on the main pulmonary artery and the right-sided pulmonary artery and right main bronchus. This is highly suspicious for bronchogenic carcinoma. We need to obtain a biopsy. We will ask interventional radiology for CT-guided biopsy of the mediastinal mass. Due to bulky disease in her chest, she is at risk for acute decompensation. Depending on the pathology of the disease I will consider giving her chemotherapy Audio ended at this point. MD KEIKO Jeong/ITZEL /6:44 PM /7:13 PM
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
[2016-11-02] MEDS ORDERED: DILTIAZEM INJ 125 MG in SODIUM CHLORIDE 0.9% INJ 100 ML IV SCH (21:00)
[2016-11-02] MEDS: BUDESONIDE-FORMOTEROL 160/4.5 MCG INHALER INH SCH (21:41)
[2016-11-02] MEDS: METOPROLOL TARTRATE 25 MG TAB PO SCH (21:42)
[2016-11-02] MEDS: CHLORHEXIDINE GLUCONATE 2 % 1 PACK (2 CLOTHS) TOP SCH (21:43)
[2016-11-03] VITALS (16 sets, daily range): BP systolic 107–198; BP diastolic 70–92; PULSE 75–111; RESP 23–24; TEMP 97.7–98.3; O2SAT 83–100
[2016-11-03] MEDS: PIPERACIL-TAZO 4.5 GM PREMIX 100 ML IV SCH ×5 (00:16→23:56)
[2016-11-03] MEDS: SODIUM CHLOR 0.9% 1000 ML INJ 1,000 ML IV SCH (00:17)
[2016-11-03] MEDS: MORPHINE SULFATE 4 MG/ML INJ IV PRN ×5 (00:23→13:03)
[2016-11-03] MEDS: RESP: ALBUTEROL 2.5 MG/IPRATROPIUM 0.5 MG NEB (SCH) INH ×4 (03:19→20:06)
[2016-11-03] MEDS: HEPARIN SODIUM - SQ 10,000 UNITS/ML VIAL SQ SCH ×3 (03:34→18:25)
[2016-11-03] MEDS: METOPROLOL TARTRATE 5 MG/5 ML VIAL IV PUSH PRN ×2 (03:35→09:04)
[2016-11-03 04:32] LABS: AUTOMATED NEUTROPHIL # 15.4 TH/MM3 (1.8-7.7); BASOPHIL % 0.1 % (0.0-2.0); HEMATOCRIT 33.4 % (35.0-46.0); HEMO FLAGS DIFF FINAL; INTERNATIONAL NORMALIZED RATIO 1.1 RATIO; LYMPH % 3.1 % (9.0-44.0); LYMPHOCYTE # 0.5 TH/MM3 (1.0-4.8); MEAN CELL VOLUME 92.4 FL (80.0-100.0); MEAN CORPUSCULAR HEMOGLOBIN 30.1 PG (27.0-34.0); MEAN CORPUSCULAR HGB CONC 32.6 % (32.0-36.0); NEUT % 95.8 % (16.0-70.0); PLATELET COUNT 428 TH/MM3 (150-450); RED BLOOD COUNT 3.61 MIL/MM3 (4.00-5.30); WHITE BLOOD COUNT 16.1 TH/MM3 (4.0-11.0)
[2016-11-03 04:41] LABS: ANION GAP 12 MEQ/L (5-15); AST (GOT) 29 U/L (15-37); BLOOD UREA NITROGEN 8 MG/DL (7-18); CHLORIDE 95 MEQ/L (98-107); POTASSIUM 3.4 MEQ/L (3.5-5.1); SODIUM (NA) 135 MEQ/L (136-145)
[2016-11-03 04:45] LABS: ALKALINE PHOSPHATASE 127 U/L (45-117); ALT (GPT) 12 U/L (10-53); GLOMERULAR FILTRATION RATE 162 ML/MIN (>89); TOTAL BILIRUBIN ADULT 0.3 MG/DL (0.2-1.0)
[2016-11-03] MEDS: methylPREDNISolone SOD SUCC 40 MG/1 ML VIAL IV PUSH SCH ×3 (05:54→20:39)
[2016-11-03] MEDS: INSULIN NovoLIN REGULAR SUPPLEMENTAL SCALE SQ SCH ×5 (05:57→20:00)
[2016-11-03] MEDS: DOCUSATE SODIUM 50 MG/SENNA 8.6 MG TAB PO SCH ×2 (07:42→19:59)
[2016-11-03] MEDS: METOPROLOL TARTRATE 25 MG TAB PO SCH ×3 (07:42→20:40)
[2016-11-03] MEDS: FAMOTIDINE 20 MG/2 ML VIAL IV PUSH SCH ×2 (07:43→19:59)
--- NOTE | 2016-11-03 08:01 | PD.CARD.PN ---
Subjective Subjective Remarks PT c/o SHOB Objective Medications Current Medications Medications (Trade) Dose Ordered Sig/Estela Route Start Time Stop Time Status Last Admin Sodium Chloride 2 ml 2 ml UNSCH PRN IVF 11/01/16 21:45 11/01/16 22:29 (NS 1000 ml Inj) 1,000 ml @ 84 mls/hr [id number] IV 11/02/16 02:45 11/03/16 00:17 (NS Flush) 2 ml UNSCH PRN .XX 11/02/16 02:45 11/03/16 03:35 (NS Flush) 2 ml BID IV FLUSH 11/02/16 09:00 11/02/16 21:41 (Tylenol) 650 mg Q6H PRN PO 11/02/16 02:45 (Morphine Inj) 2 mg Q2H PRN IV 11/02/16 02:45 11/03/16 00:23 (Pepcid Inj) 20 mg Q12HR IV PUSH 11/02/16 09:00 11/03/16 07:43 (Ativan Inj) 2 mg Q4H PRN IV 11/02/16 02:45 (Zofran Inj) 4 mg Q6H PRN IV 11/02/16 02:45 (Reglan Inj) 10 mg Q6H PRN IV 11/02/16 02:45 (Compazine Supp) 25 mg Q12H PRN RECTAL 11/02/16 02:45 (Ambien) 5 mg HS PRN PO 11/02/16 02:45 (Heparin Inj) 5,000 units Q8H SQ 11/02/16 02:45 11/03/16 03:34 Miscellaneous Information 1 [id number] XX 11/02/16 02:45 (Chlorhexidine 2% Cloth) 3 pack Taper DAILY@04 TOP 11/02/16 04:00 10/29/17 03:59 11/02/16 21:43 (Chlorhexidine 2% Cloth) 3 pack UNSCH PRN TOP 11/02/16 02:45 (Jonelle-Colace) 1 tab BID PO 11/02/16 09:00 11/03/16 07:42 (Milk Of Magnesia Liq) 30 ml Q12H PRN PO 11/02/16 02:45 (Senokot) 17.2 mg Q12H PRN PO 11/02/16 02:45 (Dulcolax Supp) 10 mg DAILY PRN RECTAL 11/02/16 02:45 (Lactulose Liq) 30 ml DAILY PRN PO 11/02/16 02:45 Methylprednisolone Sodium Succinate 60 mg 60 mg Q8HR IV PUSH 11/02/16 14:00 11/03/16 05:54 (Zosyn 4.5 Gm Premix) 100 ml @ 200 mls/hr Q6H IV 11/02/16 13:00 11/03/16 05:55 (D50w (Vial) Inj) 50 ml UNSCH PRN IV 11/02/16 11:15 (Glucagon Inj) 1 mg UNSCH PRN OTHER 11/02/16 11:15 (NovoLIN R SUPPLEMENTAL SCALE) 1 Q6H SQ 11/02/16 12:00 (Symbicort 160-4.5 Inh) 2 puff Q12HR INH 11/02/16 13:00 11/02/16 21:41 Metoprolol Tartrate 12.5 mg 12.5 mg Q12HR PO 11/02/16 21:00 11/03/16 07:42 (Cardizem Inj/NS Inj) 125 ml @ 0 mls/hr TITRATE IV 11/02/16 21:00 (Lopressor Inj) 10 mg Q4H PRN IV PUSH 11/03/16 03:30 11/03/16 03:35 Vital Signs / I&O Vital Signs Date Time Temp Pulse Resp B/P Pulse Ox O2 Delivery O2 Flow Rate FiO2 11/03/16 07:55 96 Nasal Cannula 2.00 11/03/16 06:00 91 11/03/16 04:00 87 11/03/16 04:00 98.0 87 23 192/92 100 11/03/16 02:00 105 11/03/16 00:00 97.7 96 24 185/86 99 11/03/16 00:00 96 11/02/16 22:00 131 11/02/16 20:00 133 11/02/16 20:00 98.7 133 24 104/84 100 11/02/16 19:22 98.0 133 28 138/68 98 11/02/16 19:10 96 Nasal Cannula 2.00 11/02/16 16:00 98.0 133 28 138/68 98 11/02/16 15:10 95 11/02/16 15:00 98.6 91 28 138/61 98 11/02/16 14:00 98.6 91 28 138/61 98 11/02/16 13:41 98.6 98 28 156/73 98 11/02/16 10:00 103 18 125/60 99 Room Air 11/02/16 09:31 18 98 Room Air 11/02/16 09:30 136 18 99/56 100 Nasal Cannula 2 11/02/16 09:13 100 Nasal Cannula 3.00 I/O 11/02/16 11/02/16 11/02/16 11/03/16 11/03/16 11/03/16 07:00 15:00 23:00 07:00 15:00 23:00 Intake Total 986 ml 865 ml 715 ml Output Total 700 ml 200 ml 300 ml 200 ml Balance -700 ml 786 ml 565 ml 515 ml Intake Oral 240 ml IV Total 986 ml 625 ml 715 ml Output Urine Total 700 ml 200 ml 300 ml 200 ml # Voids 2 1 1 1 Physical Exam GENERAL: Well developed, well nourished. No acute distress. HEENT: Jugular venous pressure is normal. CHEST: Lungs rhonchi to auscultation bilaterally. Unlabored respiratory effort. CARDIAC: regular tachycardia and rhythm without S3, S4, or murmur. ABDOMEN: Soft, nontender, no hepatosplenomegaly. Bowel sounds present. EXTREMITIES: No clubbing, cyanosis, or edema. Laboratory Laboratory Tests Test 11/02/16 11/02/16 11/02/16 11/03/16 12:15 13:06 17:39 03:33 Activated Partial 33.1 SEC Thromboplast Time Nasal Screen MRSA (PCR) MRSA NOT DETECTED White Blood Count 16.6 TH/MM3 16.1 TH/MM3 Red Blood Count 3.40 MIL/MM3 3.61 MIL/MM3 Hemoglobin 10.2 GM/DL 10.9 GM/DL Hematocrit 31.6 % 33.4 % Mean Corpuscular Volume 92.9 FL 92.4 FL Mean Corpuscular Hemoglobin 29.9 PG 30.1 PG Mean Corpuscular Hemoglobin 32.2 % 32.6 % Concent Red Cell Distribution Width 16.1 % 16.0 % Platelet Count 420 TH/MM3 428 TH/MM3 Mean Platelet Volume 9.3 FL 9.3 FL Neutrophils (%) (Auto) 75.1 % 95.8 % Lymphocytes (%) (Auto) 2.3 % 3.1 % Monocytes (%) (Auto) 21.4 % 1.0 % Eosinophils (%) (Auto) 0.9 % 0.0 % Basophils (%) (Auto) 0.3 % 0.1 % Neutrophils # (Auto) 12.5 TH/MM3 15.4 TH/MM3 Lymphocytes # (Auto) 0.4 TH/MM3 0.5 TH/MM3 Monocytes # (Auto) 3.6 TH/MM3 0.2 TH/MM3 Eosinophils # (Auto) 0.2 TH/MM3 0.0 TH/MM3 Basophils # (Auto) 0.0 TH/MM3 0.0 TH/MM3 CBC Comment AUTO DIFF DIFF FINAL Differential Comment AUTO DIFF CONFIRMED Platelet Estimate HIGH Platelet Morphology Comment NORMAL Red Cell Morphology Comment NORMAL Sodium Level 134 MEQ/L 135 MEQ/L Potassium Level 4.3 MEQ/L 3.4 MEQ/L Chloride Level 98 MEQ/L 95 MEQ/L Carbon Dioxide Level 26.5 MEQ/L 28.0 MEQ/L Anion Gap 10 MEQ/L 12 MEQ/L Blood Urea Nitrogen 8 MG/DL 8 MG/DL Creatinine 0.41 MG/DL 0.40 MG/DL Estimat Glomerular Filtration 157 ML/MIN 162 ML/MIN Rate Random Glucose 96 MG/DL 122 MG/DL Calcium Level 8.8 MG/DL 8.8 MG/DL Phosphorus Level 2.2 MG/DL 2.4 MG/DL Magnesium Level 1.7 MG/DL 2.0 MG/DL Total Bilirubin 0.4 MG/DL 0.3 MG/DL Aspartate Amino Transf 47 U/L 29 U/L (AST/SGOT) Alanine Aminotransferase 12 U/L 12 U/L (ALT/SGPT) Alkaline Phosphatase 131 U/L 127 U/L Troponin I 0.87 NG/ML B-Type Natriuretic Peptide 746 PG/ML Total Protein 7.1 GM/DL 7.2 GM/DL Albumin 2.5 GM/DL 2.7 GM/DL Prothrombin Time 12.0 SEC Prothromb Time International 1.1 RATIO Ratio Assessment and Plan Assessment and Plan PAF today, currently sinus tachy -CHADS-VASc score 2, HTN female, on heparin drip. -mass biopsy today Lung mass. - This will be managed by the primary team. Hypertension - increase as sBP 200 this am Macie Coleman MD Nov 03, 2016 08:01
[2016-11-03] MEDS ORDERED: POTASSIUM PHOSPHATE MONOBASIC 500 MG TAB PO PRN (08:45)
[2016-11-03] MEDS ORDERED: POTASSIUM CHLORIDE 25 MEQ EFFERVESCENT TAB PO PRN (08:45)
[2016-11-03] MEDS ORDERED: POTASSIUM PHOSPHATE INJ 30 MMOL in SODIUM CHLOR 0.9% 250 ML INJ 250 ML IV PRN (08:45)
[2016-11-03] MEDS ORDERED: SODIUM PHOSPHATE INJ 30 MMOL in SODIUM CHLOR 0.9% 250 ML INJ 240 ML IV PRN (08:45)
[2016-11-03] MEDS ORDERED: POTASSIUM PHOSPHATE MONOBASIC 500 MG TAB PO/TUBE PRN (08:45)
[2016-11-03] MEDS ORDERED: MAGNESIUM SULFATE INJ 2 GM in SODIUM CHLORIDE 0.9% INJ 96 ML IV PRN (08:45)
[2016-11-03] MEDS ORDERED: POTASSIUM CHLOR 40 MEQ PREMIX 100 ML IV PRN ×2 (08:45)
[2016-11-03] MEDS ORDERED: MAGNESIUM OXIDE 400 MG TAB PO PRN (08:45)
[2016-11-03] MEDS ORDERED: POTASSIUM CHLOR 20 MEQ PREMIX 100 ML IV PRN ×2 (08:45)
[2016-11-03] MEDS ORDERED: MAGNESIUM SULFATE INJ 4 GM in SODIUM CHLORIDE 0.9% INJ 92 ML IV PRN (08:45)
--- NOTE | 2016-11-03 08:59 | HHI.CCPN ---
Subjective Remarks/Hospital Course 61-year-old female presents due to shortness of breath. She arrives by EMS. She has a smoking history one pack per day. She reports chest pain for today. Her shortness of breath has steadily worsened. A cough is noted along with hot flashes. Cough is productive of white phlegm. She has no similar history prior to this event. CT of the chest revealed Right lower lobe masses in addition to the extensive metastatic adenopathy within the mediastinum and huge mass or malignant adenopathy in the right hilum. Significant mass effect on the main pulmonary artery and right-sided pulmonary arteries in addition to right main bronchus. 11/03 No events overnight. Patient is lying in bed in no acute resp distress. For CT guided biopsy of lung mass today. On 2L oxygen. Objective Vital Signs Date Time Temp Pulse Resp B/P Pulse Ox O2 Delivery O2 Flow Rate FiO2 11/03/16 07:55 96 Nasal Cannula 2.00 11/03/16 06:00 91 11/03/16 04:00 98.0 23 192/92 Intake and Output 11/02/16 11/02/16 11/03/16 08:00 16:00 00:00 Intake Total 986 ml 865 ml Output Total 900 ml 300 ml Balance -900 ml 986 ml 565 ml Result Diagram: 11/03/16 0333 11/03/16 0333 Other Results Laboratory Tests Test 11/02/16 11/02/16 11/02/16 11/03/16 12:15 13:06 17:39 03:33 Activated Partial 33.1 SEC Thromboplast Time Nasal Screen MRSA (PCR) MRSA NOT DETECTED White Blood Count 16.6 TH/MM3 16.1 TH/MM3 Red Blood Count 3.40 MIL/MM3 3.61 MIL/MM3 Hemoglobin 10.2 GM/DL 10.9 GM/DL Hematocrit 31.6 % 33.4 % Mean Corpuscular Volume 92.9 FL 92.4 FL Mean Corpuscular Hemoglobin 29.9 PG 30.1 PG Mean Corpuscular Hemoglobin 32.2 % 32.6 % Concent Red Cell Distribution Width 16.1 % 16.0 % Platelet Count 420 TH/MM3 428 TH/MM3 Mean Platelet Volume 9.3 FL 9.3 FL Neutrophils (%) (Auto) 75.1 % 95.8 % Lymphocytes (%) (Auto) 2.3 % 3.1 % Monocytes (%) (Auto) 21.4 % 1.0 % Eosinophils (%) (Auto) 0.9 % 0.0 % Basophils (%) (Auto) 0.3 % 0.1 % Neutrophils # (Auto) 12.5 TH/MM3 15.4 TH/MM3 Lymphocytes # (Auto) 0.4 TH/MM3 0.5 TH/MM3 Monocytes # (Auto) 3.6 TH/MM3 0.2 TH/MM3 Eosinophils # (Auto) 0.2 TH/MM3 0.0 TH/MM3 Basophils # (Auto) 0.0 TH/MM3 0.0 TH/MM3 CBC Comment AUTO DIFF DIFF FINAL Differential Comment AUTO DIFF CONFIRMED Platelet Estimate HIGH Platelet Morphology Comment NORMAL Red Cell Morphology Comment NORMAL Sodium Level 134 MEQ/L 135 MEQ/L Potassium Level 4.3 MEQ/L 3.4 MEQ/L Chloride Level 98 MEQ/L 95 MEQ/L Carbon Dioxide Level 26.5 MEQ/L 28.0 MEQ/L Anion Gap 10 MEQ/L 12 MEQ/L Blood Urea Nitrogen 8 MG/DL 8 MG/DL Creatinine 0.41 MG/DL 0.40 MG/DL Estimat Glomerular Filtration 157 ML/MIN 162 ML/MIN Rate Random Glucose 96 MG/DL 122 MG/DL Calcium Level 8.8 MG/DL 8.8 MG/DL Phosphorus Level 2.2 MG/DL 2.4 MG/DL Magnesium Level 1.7 MG/DL 2.0 MG/DL Total Bilirubin 0.4 MG/DL 0.3 MG/DL Aspartate Amino Transf 47 U/L 29 U/L (AST/SGOT) Alanine Aminotransferase 12 U/L 12 U/L (ALT/SGPT) Alkaline Phosphatase 131 U/L 127 U/L Troponin I 0.87 NG/ML B-Type Natriuretic Peptide 746 PG/ML Total Protein 7.1 GM/DL 7.2 GM/DL Albumin 2.5 GM/DL 2.7 GM/DL Prothrombin Time 12.0 SEC Prothromb Time International 1.1 RATIO Ratio Imaging Last [address] Angiography 11/02/162229 Signed Impressions: Service Date/Time: Wednesday, November 02, 2016 00:13 - CONCLUSION: Right lower lobe masses in addition to the extensive metastatic adenopathy within the mediastinum and huge mass or malignant adenopathy in the right hilum. Significant mass effect on the main pulmonary artery and right-sided pulmonary arteries in addition to right main bronchus. Yue Hickey MD Chest X-Ray 11/01/162141 Signed Impressions: Service Date/Time: Tuesday, November 01, 2016 21:55 - CONCLUSION: Bilateral hilar masses and patchy airspace disease, both right larger than left. Also a small right pleural effusion. Jt Jiang MD Objective Remarks GENERAL: Cachectic, sick, and pale pleasant female in no acute distress SKIN: Warm and dry. HEAD: Normocephalic. EYES: No scleral icterus. No injection or drainage. NECK: Supple, trachea midline. No JVD or lymphadenopathy. CARDIOVASCULAR: Regular rate and rhythm without murmurs, gallops, or rubs. RESPIRATORY: Breath sounds equal bilaterally. No accessory muscle use. GASTROINTESTINAL: Abdomen soft, non-tender, nondistended. MUSCULOSKELETAL: No cyanosis, or edema. BACK: Nontender without obvious deformity. No CVA tenderness. Neuro: awake and alert A/P Assessment and Plan 1)Respiratory failure 2)Right lung masses with mediastinal adenopathy r/o bronchogenic ca 3)Hypertension 4)Elevated tropeolins 6)Anemia 7)Active tobacco use 8)Leukocytosis 9)PAF Plan Neuro: Monitor neuro status and avoid sedatives Pulm: Continue with oxygen keep sat >92% Bronchodilators, Soumederol 60mg Q8 NIPPV PRN for resp distress. Pulm is following- Dr. Sosa For CT guided biopsy lung mass today CV: Monitor HR and BP keep MAP>65mmHg Patient went into Afib with RVR yesterday now sinus tach Cards is following- Dr. Coleman. Lopressor 25mg Q8 For 2D echo today, monitor trop. : Monitor renal function, electrolytes replacement per protocol. Will need K, Phos replacement today. D/c IVF GI: Keep NPO. On Pepcid for GI prophylaxis ID: Continue with abx ( Zosyn)monitor for signs of infections ( Fever, WBC) BC from 11/01 : NGTD Heme: Monitor CBC, Onc is following-Bob Adams onc is following as well patient will likely need radiation treatment and Chemo. Endo: SSI for glycemic control GI prophylaxis- On Pepcid DVT prophylaxis- On Heparin SQ Level 3 Andria Ardon MD Nov 03, 2016 08:59
[2016-11-03] MEDS: SODIUM CHLORIDE 0.9% FLUSH 10 ML FLUSH IV FLUSH SCH ×2 (09:00→19:59)
[2016-11-03] MEDS: BUDESONIDE-FORMOTEROL 160/4.5 MCG INHALER INH SCH ×2 (09:00→19:32)
[2016-11-03] MEDS ORDERED: GLUCAGON 1 MG/ML VIAL OTHER PRN (09:00)
[2016-11-03] MEDS ORDERED: DEXTROSE 50% IN WATER 50 ML VIAL(D50) IV PRN (09:00)
--- NOTE | 2016-11-03 11:33 | PD.ONC.PN ---
Subjective Subjective Remarks AFebrile overnight. Patient refused biopsy in CT this morning. She stated she was too tired and in too much pain for biopsy. Objective Data Date Time Temp Pulse Resp B/P Pulse Ox O2 Delivery O2 Flow Rate FiO2 11/03/16 08:00 98.1 87 23 178/92 100 11/03/16 08:00 91 11/03/16 07:55 96 Nasal Cannula 2.00 11/03/16 06:00 91 11/03/16 04:00 87 11/03/16 04:00 98.0 87 23 192/92 100 11/03/16 02:00 105 11/03/16 00:00 97.7 96 24 185/86 99 11/03/16 00:00 96 11/02/16 22:00 131 11/02/16 20:00 133 11/02/16 20:00 98.7 133 24 104/84 100 11/02/16 19:22 98.0 133 28 138/68 98 11/02/16 19:10 96 Nasal Cannula 2.00 11/02/16 16:00 98.0 133 28 138/68 98 11/02/16 15:10 95 11/02/16 15:00 98.6 91 28 138/61 98 11/02/16 14:00 98.6 91 28 138/61 98 11/02/16 13:41 98.6 98 28 156/73 98 11/03/16 11/03/16 11/03/16 07:00 15:00 23:00 Intake Total 715 ml Output Total 200 ml Balance 515 ml Result Diagram: 11/03/16 0333 11/03/16 0333 Laboratory Results Laboratory Tests Test 11/02/16 11/02/16 11/02/16 11/03/16 12:15 13:06 17:39 03:33 Activated Partial 33.1 SEC Thromboplast Time Nasal Screen MRSA (PCR) MRSA NOT DETECTED White Blood Count 16.6 TH/MM3 16.1 TH/MM3 Red Blood Count 3.40 MIL/MM3 3.61 MIL/MM3 Hemoglobin 10.2 GM/DL 10.9 GM/DL Hematocrit 31.6 % 33.4 % Mean Corpuscular Volume 92.9 FL 92.4 FL Mean Corpuscular Hemoglobin 29.9 PG 30.1 PG Mean Corpuscular Hemoglobin 32.2 % 32.6 % Concent Red Cell Distribution Width 16.1 % 16.0 % Platelet Count 420 TH/MM3 428 TH/MM3 Mean Platelet Volume 9.3 FL 9.3 FL Neutrophils (%) (Auto) 75.1 % 95.8 % Lymphocytes (%) (Auto) 2.3 % 3.1 % Monocytes (%) (Auto) 21.4 % 1.0 % Eosinophils (%) (Auto) 0.9 % 0.0 % Basophils (%) (Auto) 0.3 % 0.1 % Neutrophils # (Auto) 12.5 TH/MM3 15.4 TH/MM3 Lymphocytes # (Auto) 0.4 TH/MM3 0.5 TH/MM3 Monocytes # (Auto) 3.6 TH/MM3 0.2 TH/MM3 Eosinophils # (Auto) 0.2 TH/MM3 0.0 TH/MM3 Basophils # (Auto) 0.0 TH/MM3 0.0 TH/MM3 CBC Comment AUTO DIFF DIFF FINAL Differential Comment AUTO DIFF CONFIRMED Platelet Estimate HIGH Platelet Morphology Comment NORMAL Red Cell Morphology Comment NORMAL Sodium Level 134 MEQ/L 135 MEQ/L Potassium Level 4.3 MEQ/L 3.4 MEQ/L Chloride Level 98 MEQ/L 95 MEQ/L Carbon Dioxide Level 26.5 MEQ/L 28.0 MEQ/L Anion Gap 10 MEQ/L 12 MEQ/L Blood Urea Nitrogen 8 MG/DL 8 MG/DL Creatinine 0.41 MG/DL 0.40 MG/DL Estimat Glomerular Filtration 157 ML/MIN 162 ML/MIN Rate Random Glucose 96 MG/DL 122 MG/DL Calcium Level 8.8 MG/DL 8.8 MG/DL Phosphorus Level 2.2 MG/DL 2.4 MG/DL Magnesium Level 1.7 MG/DL 2.0 MG/DL Total Bilirubin 0.4 MG/DL 0.3 MG/DL Aspartate Amino Transf 47 U/L 29 U/L (AST/SGOT) Alanine Aminotransferase 12 U/L 12 U/L (ALT/SGPT) Alkaline Phosphatase 131 U/L 127 U/L Troponin I 0.87 NG/ML B-Type Natriuretic Peptide 746 PG/ML Total Protein 7.1 GM/DL 7.2 GM/DL Albumin 2.5 GM/DL 2.7 GM/DL Prothrombin Time 12.0 SEC Prothromb Time International 1.1 RATIO Ratio Culture Results Microbiology Date/Time Procedure Status Source Growth 11/01/16 23:00 Aerobic Blood Culture - Preliminary Resulted Blood Peripheral NO GROWTH IN 2 DAYS 11/01/16 23:00 Anaerobic Blood Culture - Preliminary Resulted Blood Peripheral NO GROWTH IN 2 DAYS 11/01/16 23:15 Aerobic Blood Culture - Preliminary Resulted Blood Peripheral NO GROWTH IN 2 DAYS 11/01/16 23:15 Anaerobic Blood Culture - Preliminary Resulted Blood Peripheral NO GROWTH IN 2 DAYS Imaging Studies Last [address] Angiography 11/02/160 Signed Impressions: Service Date/Time: Wednesday, November 02, 2016 00:13 - CONCLUSION: Right lower lobe masses in addition to the extensive metastatic adenopathy within the mediastinum and huge mass or malignant adenopathy in the right hilum. Significant mass effect on the main pulmonary artery and right-sided pulmonary arteries in addition to right main bronchus. Yue Hickey MD Administered Medications Medications (Trade) Dose Ordered Sig/Estela Route PRN Reason Start Time Stop Time Status Last Admin Dose Admin Sodium Chloride (NS Flush) 2 ml UNSCH PRN IVF FLUSH AFTER USING IV ACCESS 11/01/16 21:45 11/01/16 22:29 Sodium Chloride (NS Flush) 2 ml UNSCH PRN .XX FLUSH AFTER USING IV ACCESS 11/02/16 02:45 11/03/16 03:35 Sodium Chloride (NS Flush) 2 ml BID IV FLUSH 11/02/16 09:00 11/03/16 09:00 Morphine Sulfate (Morphine Inj) 2 mg Q2H PRN IV PAIN SCALE 6 TO 10 11/02/16 02:45 11/03/16 09:03 Famotidine (Pepcid Inj) 20 mg Q12HR IV PUSH 11/02/16 09:00 11/03/16 07:43 Heparin Sodium (Porcine) (Heparin Inj) 5,000 units Q8H SQ 11/02/16 02:45 11/03/16 03:34 Chlorhexidine Gluconate (Chlorhexidine 2% Cloth) 3 pack Taper DAILY@04 TOP 11/02/16 04:00 10/29/17 03:59 11/02/16 21:43 Senna/Docusate Sodium (Jonelle-Colace) 1 tab BID PO 11/02/16 09:00 11/03/16 07:42 Methylprednisolone Sodium Succinate 60 mg 60 mg Q8HR IV PUSH 11/02/16 14:00 6/14/17 05:54 Piperacillin Sod/ Tazobactam Sod (Zosyn 4.5 Gm Premix) 100 ml @ 200 mls/hr Q6H IV 11/02/16 13:00 11/03/16 05:55 Budesonide/ Formoterol Fumarate (Symbicort 160-4.5 Inh) 2 puff Q12HR INH 11/02/16 13:00 11/03/16 09:00 Metoprolol Tartrate (Lopressor Inj) 10 mg Q4H PRN IV PUSH FOR HYPERTENSION 11/03/16 03:30 11/03/16 09:04 Objective Remarks GENERAL: Very weak elderly female, lying supine in bed. SKIN: Warm and dry. HEAD: Normocephalic. EYES: No injection or drainage. NECK: Supple, trachea midline. CARDIOVASCULAR: +S1/S2 RESPIRATORY: diminished at bases. scattered rhonchi. On 2L O2 via NC GASTROINTESTINAL: Abdomen soft, non-tender, nondistended. EXTREMITIES: No cyanosis NEUROLOGICAL: awake and alert, normal speech. Assessment/Plan Problem List: (1) Lung mass Status: Acute Plan: --Right lower lobe mass with extensive metastatic adenopathy within the mediastinum and a large mass in the right hilum. Also significant mass effect on the main pulmonary artery and the right-sided pulmonary artery and right main bronchus. --highly suspicious for bronchogenic carcinoma. --need biopsy for confirmation --Due to bulky disease in her chest, she is at risk for acute decompensation. Assessment 61y/o admitted with weakness, heart palpitations and chest pain. Oncology consulted for multiple lung lesions. h/o Hypertension. atrial fibrillation Plan 1. await CT Guided biopsy--d/w patient the need for biopsy so treatment can be started as soon as possible. She states she will agree to have it done tomorrow , but is in too much pain today 2. continue supportive care. 3. will ask case management to assist patient with filling out paperwork for healthcare surrogate. Attending Statement The exam, history, and the medical decision-making described in the above note were completed with the assistance of the mid-level provider. I reviewed and agree with the findings presented. I attest that I had a [id number] encounter with the patient on the same day, and personally performed and documented my assessment and findings in the medical record Patient refusing biopsy. Narrow window for establishing a diagnosis and starting treatment Bulky tumor causing mass effect in the lung--has high potential to decompensate Will attempt for biopsy in AM Joan Adams Nov 03, 2016 11:33 Milad Faustin MD Nov 03, 2016 22:52
[2016-11-03] MEDS: LORazepam 2 MG/ML VIAL IV PRN ×2 (15:44→20:39)
[2016-11-03] MEDS ORDERED: hydrALAZINE HCL 20 MG/ML VIAL IV PUSH PRN (16:00)
--- NOTE | 2016-11-03 17:40 | ECHRPT ---
Indication: + Trop CONCLUSIONS Normal left ventricular size. Wall thickness is normal. The left ventricular systolic function is moderately to severely reduced with an estimated ejection fraction of 30%. There is global hypokinesis Mild thickening of the mitral valve leaflets. Moderate to severe mitral valve regurgitation. Mild mitral annular calcification. Mild thickening of the aortic valve leaflets. Mild to moderate aortic valve regurgitation. There is mild tricuspid valve regurgitation. There is estimated [id number] pulmonary hypertension present ( 67 mmHg). There is a trivial pericardial effusion present. BP: 125 / 60 HR: 103 Rhythm: Sinus MEASUREMENTS (Male / Female) Normal Values Technical Quality:Good 2D ECHO LV Diastolic Diameter PLAX 4.5 cm 4.2 - 5.9 / 3.9 - 5.3 cm LV Systolic Diameter PLAX 3.9 cm IVS Diastolic Thickness 1.1 cm 0.6 - 1.0 / 0.6 - 0.9 cm LVPW Diastolic Thickness 0.6 cm 0.6 - 1.0 / 0.6 - 0.9 cm LV Relative Wall Thickness 0.4 RV Internal Dim ED PLAX 1.8 cm LA Systolic Diameter LX 3.1 cm 3.0 - 4.0 / 2.7 - 3.8 cm M-MODE AV Cusp Separation MM 1.6 cm DOPPLER AV Peak Velocity 174.0 cm/s AV Peak Gradient 12.1 mmHg LVOT Peak Velocity 102.0 cm/s LVOT Peak Gradient 4.2 mmHg MR Peak Velocity 707.0 cm/s MR Peak Gradient 199.9 mmHg Mitral E Point Velocity 46.9 cm/s Mitral A Point Velocity 73.1 cm/s Mitral E to A Ratio 0.6 TR Peak Velocity 395.0 cm/s TR Peak Gradient 62.4 mmHg FINDINGS LEFT VENTRICLE Normal left ventricular size. Wall thickness is normal. The left ventricular systolic function is moderately to severely reduced with an estimated ejection fraction of 30%. There is global hypokinesis RIGHT VENTRICLE Normal right ventricular size and systolic function. LEFT ATRIUM The left atrial size is normal. RIGHT ATRIUM The right atrial size is normal. ATRIAL SEPTUM Normal atrial septal thickness without atrial level shunting by limited color doppler interrogation. AORTA The aortic root and proximal ascending aorta are normal in size on limited imaging. MITRAL VALVE Mild thickening of the mitral valve leaflets. Moderate to severe mitral valve regurgitation. Mild mitral annular calcification. AORTIC VALVE Trileaflet aortic valve. Mild thickening of the aortic valve leaflets. Mild to moderate aortic valve regurgitation. Eccentric aortic regurgitation jet directed at the ventricular septum. TRICUSPID VALVE There is mild tricuspid valve regurgitation. There is estimated svpivipc-fo-jgvyjf pulmonary hyperte nsion present ( 67 mmHg). VESSELS The inferior vena cava is normal in size. PERICARDIUM There is a trivial pericardial effusion present. Zandra Aquino MD, FACC (Electronically Signed) Final Date:03 November 2016 17:39
--- NOTE | 2016-11-03 18:42 | HHI.PR ---
Subjective Remarks 61 YOWF with very large lung mass, mediastinal LN,COPD Had Marking done for radiation Refused CT guided lung bx as she was tired Mild sob Objective Vital Signs Vital Signs Date Time Temp Pulse Resp B/P Pulse Ox O2 Delivery O2 Flow Rate FiO2 11/03/16 18:00 91 11/03/16 16:00 91 11/03/16 16:00 98.3 75 24 146/70 100 11/03/16 14:00 91 11/03/16 12:00 98.0 97 24 198/92 100 11/03/16 12:00 91 11/03/16 10:00 91 11/03/16 08:00 98.1 87 23 178/92 100 11/03/16 08:00 91 11/03/16 07:55 96 Nasal Cannula 2.00 11/03/16 06:00 91 11/03/16 04:00 87 11/03/16 04:00 98.0 87 23 192/92 100 11/03/16 02:00 105 11/03/16 00:00 97.7 96 24 185/86 99 11/03/16 00:00 96 11/02/16 22:00 131 11/02/16 20:00 133 11/02/16 20:00 98.7 133 24 104/84 100 11/02/16 19:22 98.0 133 28 138/68 98 11/02/16 19:10 96 Nasal Cannula 2.00 I/O 11/02/16 11/02/16 11/02/16 11/03/16 11/03/16 11/03/16 07:00 15:00 23:00 07:00 15:00 23:00 Intake Total 986 ml 865 ml 715 ml 840 ml Output Total 700 ml 200 ml 300 ml 200 ml 600 ml Balance -700 ml 786 ml 565 ml 515 ml 240 ml Intake Oral 240 ml 280 ml IV Total 986 ml 625 ml 715 ml 560 ml Output Urine Total 700 ml 200 ml 300 ml 200 ml 600 ml # Voids 2 1 1 1 4 Result Diagram: 11/03/16 03311/03/16 033 Medications and IVs GENERAL: Thin built WF,mild sob SKIN: Warm and dry. HEAD: Normocephalic. EYES: No scleral icterus. No injection or drainage. NECK: Supple, trachea midline. No JVD or lymphadenopathy. CARDIOVASCULAR: Regular rate and rhythm without murmurs, gallops, or rubs. RESPIRATORY: Breath sounds equal bilaterally. No accessory muscle use. GASTROINTESTINAL: Abdomen soft, non-tender, nondistended. MUSCULOSKELETAL: No cyanosis, or edema. BACK: Nontender without obvious deformity. No CVA tenderness. A/P Assessment and Plan Large lung mass Medistinal LN compressing Right Pulm art COPD exac HTN Weight loss Dysnoea PLAN: Cont Abx Aerosol nebs Supplement 02 CT guided lung bx in Arsalan Shane MD Nov 03, 2016 18:42
[2016-11-03] MEDS: CHLORHEXIDINE GLUCONATE 2 % 1 PACK (2 CLOTHS) TOP SCH (19:33)
[2016-11-03] MEDS ORDERED: FUROSEMIDE 20 MG/2 ML VIAL IV PUSH ONE (21:45)
[2016-11-03 23:58] LABS: POTASSIUM 3.6 MEQ/L (3.5-5.1)
[2016-11-04] VITALS (16 sets, daily range): BP systolic 125–184; BP diastolic 63–90; PULSE 92–113; RESP 20–24; TEMP 97.3–98.7; O2SAT 93–100
[2016-11-04] MEDS: LORazepam 2 MG/ML VIAL IV PRN ×2 (01:39→14:55)
[2016-11-04] MEDS: HEPARIN SODIUM - SQ 10,000 UNITS/ML VIAL SQ SCH ×3 (01:54→17:27)
[2016-11-04] MEDS: INSULIN NovoLIN REGULAR SUPPLEMENTAL SCALE SQ SCH ×5 (02:03→20:54)
[2016-11-04] MEDS: RESP: ALBUTEROL 2.5 MG/IPRATROPIUM 0.5 MG NEB (SCH) INH ×4 (03:52→20:44)
[2016-11-04] MEDS: METOPROLOL TARTRATE 25 MG TAB PO SCH ×3 (04:48→20:53)
[2016-11-04] MEDS: methylPREDNISolone SOD SUCC 40 MG/1 ML VIAL IV PUSH SCH ×3 (04:56→20:53)
[2016-11-04] MEDS: PIPERACIL-TAZO 4.5 GM PREMIX 100 ML IV SCH ×3 (04:56→17:28)
[2016-11-04 06:33] LABS: BICARBONATE 31.2 MEQ/L (21.0-32.0); MAGNESIUM 2.1 MG/DL (1.5-2.5); POTASSIUM 3.5 MEQ/L (3.5-5.1)
[2016-11-04] MEDS: SODIUM CHLORIDE 0.9% FLUSH 10 ML FLUSH IV FLUSH SCH ×2 (07:40→20:54)
[2016-11-04] MEDS: METOPROLOL TARTRATE 5 MG/5 ML VIAL IV PUSH PRN (07:40)
--- NOTE | 2016-11-04 07:54 | PD.CARD.PN ---
Subjective Subjective Remarks non verbal Objective Medications Current Medications Medications (Trade) Dose Ordered Sig/Estela Route Start Time Stop Time Status Last Admin (NS Flush) 2 ml UNSCH PRN IVF 11/01/16 21:45 11/01/16 22:29 (NS Flush) 2 ml UNSCH PRN .XX 11/02/16 02:45 11/03/16 03:35 (NS Flush) 2 ml BID IV FLUSH 11/02/16 09:00 11/04/16 07:40 (Tylenol) 650 mg Q6H PRN PO 11/02/16 02:45 (Morphine Inj) 2 mg Q2H PRN IV 11/02/16 02:45 11/03/16 13:03 (Pepcid Inj) 20 mg Q12HR IV PUSH 11/02/16 09:00 11/03/16 19:59 (Ativan Inj) 2 mg Q4H PRN IV 11/02/16 02:45 11/04/16 01:39 (Zofran Inj) 4 mg Q6H PRN IV 11/02/16 02:45 (Reglan Inj) 10 mg Q6H PRN IV 11/02/16 02:45 (Compazine Supp) 25 mg Q12H PRN RECTAL 11/02/16 02:45 (Ambien) 5 mg HS PRN PO 11/02/16 02:45 (Heparin Inj) 5,000 units Q8H SQ 11/02/16 02:45 11/04/16 01:54 Miscellaneous Information 1 Q361D XX 11/02/16 02:45 (Chlorhexidine 2% Cloth) 3 pack Taper DAILY@04 TOP 11/02/16 04:00 10/29/17 03:59 11/03/16 19:33 (Chlorhexidine 2% Cloth) 3 pack UNSCH PRN TOP 11/02/16 02:45 (Jonelle-Colace) 1 tab BID PO 11/02/16 09:00 11/03/16 19:59 (Milk Of Magnesia Liq) 30 ml Q12H PRN PO 11/02/16 02:45 (Senokot) 17.2 mg Q12H PRN PO 11/02/16 02:45 (Dulcolax Supp) 10 mg DAILY PRN RECTAL 11/02/16 02:45 (Lactulose Liq) 30 ml DAILY PRN PO 11/02/16 02:45 Methylprednisolone Sodium Succinate 60 mg 60 mg Q8HR IV PUSH 11/02/16 14:00 11/04/16 04:56 (Zosyn 4.5 Gm Premix) 100 ml @ 200 mls/hr Q6H IV 11/02/16 13:00 11/04/16 04:56 (Symbicort 160-4.5 Inh) 2 puff Q12HR INH 11/02/16 13:00 11/03/16 19:32 (Lopressor Inj) 10 mg Q4H PRN IV PUSH 11/03/16 03:30 11/04/16 07:40 Metoprolol Tartrate 25 mg 25 mg Q8HR PO 11/03/16 14:00 11/03/16 20:40 Potassium Chloride 100 ml @ 50 mls/hr Q2H PRN IV 11/03/16 08:45 (KCl 20 Meq Premix Inj) 100 ml @ 50 mls/hr Q2H PRN IV 11/03/16 08:45 Potassium Bicarb/ Potassium Chloride 50 meq 50 meq UNSCH PRN PO 11/03/16 08:45 Potassium Chloride 100 ml @ 25 mls/hr UNSCH PRN IV 11/03/16 08:45 Potassium Chloride 100 ml @ 50 mls/hr Q2H PRN IV 11/03/16 08:45 (Magnesium Sulfate Inj/NS Inj) 100 ml @ 50 mls/hr UNSCH PRN IV 11/03/16 08:45 Magnesium Oxide 800 mg 800 mg UNSCH PRN PO 11/03/16 08:45 (Magnesium Sulfate Inj/NS Inj) 100 ml @ 50 mls/hr UNSCH PRN IV 11/03/16 08:45 Potassium Phosphate 2000 mg 2,000 mg Q4H PRN PO 11/03/16 08:45 (Sodium Phosphate Inj/NS 250 ml Inj) 250 ml @ 42 mls/hr UNSCH PRN IV 11/03/16 08:45 Potassium Phosphate 2000 mg 2,000 mg UNSCH PRN PO/TUBE 11/03/16 08:45 (Potassium Phosphate Inj/NS 250 ml Inj) 260 ml @ 42 mls/hr UNSCH PRN IV 11/03/16 08:45 11/03/16 12:30 (D50w (Vial) Inj) 50 ml UNSCH PRN IV 11/03/16 09:00 (Glucagon Inj) 1 mg UNSCH PRN OTHER 11/03/16 09:00 (NovoLIN R SUPPLEMENTAL SCALE) 1 Q6H SQ 11/03/16 09:00 (Apresoline Inj) 10 mg Q6H PRN IV PUSH 11/03/16 16:00 11/03/16 18:25 (Mucinex Er) 600 mg BID PO 11/04/16 09:00 Vital Signs / I&O Vital Signs Date Time Temp Pulse Resp B/P Pulse Ox O2 Delivery O2 Flow Rate FiO2 11/04/16 06:00 111 11/04/16 04:30 98.7 113 21 125/66 100 11/04/16 04:00 111 11/04/16 04:00 98.7 113 21 184/85 100 11/04/16 02:00 111 11/04/16 00:00 98.7 92 21 132/63 100 11/04/16 00:00 111 11/03/16 22:00 111 11/03/16 21:12 99 Partial Rebreather 13.00 11/03/16 21:05 87 Venturi Mask 6.00 50 11/03/16 20:45 83 Nasal Cannula 2.00 11/03/16 20:06 Nasal Cannula 2.00 11/03/16 20:00 98.3 111 24 107/70 100 11/03/16 20:00 111 11/03/16 18:00 91 11/03/16 16:00 91 11/03/16 16:00 98.3 75 24 146/70 100 11/03/16 14:00 91 11/03/16 12:00 98.0 97 24 198/92 100 11/03/16 12:00 91 11/03/16 10:00 91 11/03/16 08:00 98.1 87 23 178/92 100 11/03/16 08:00 91 11/03/16 07:55 96 Nasal Cannula 2.00 I/O 11/03/16 11/03/16 11/03/16 11/04/16 11/04/16 11/04/16 07:00 15:00 23:00 07:00 15:00 23:00 Intake Total 715 ml 840 ml 400 ml 225 ml Output Total 200 ml 600 ml 450 ml 525 ml Balance 515 ml 240 ml -50 ml -300 ml Intake Oral 280 ml 225 ml IV Total 715 ml 560 ml 175 ml 225 ml Output Urine Total 200 ml 600 ml 450 ml 525 ml # Voids 1 4 3 5 Physical Exam GENERAL: Well developed, well nourished. No acute distress. HEENT: Jugular venous pressure is normal. CHEST: Lungs rhonchi to auscultation bilaterally. Unlabored respiratory effort. CARDIAC: regular tachycardia and rhythm without S3, S4, or murmur. ABDOMEN: Soft, nontender, no hepatosplenomegaly. Bowel sounds present. EXTREMITIES: No clubbing, cyanosis, or edema. Laboratory Laboratory Tests Test 11/03/16 11/03/16 11/04/16 11:46 23:01 05:07 Phosphorus Level 2.0 MG/DL 3.0 MG/DL 3.1 MG/DL Troponin I 1.12 NG/ML Potassium Level 3.6 MEQ/L 3.5 MEQ/L Sodium Level 136 MEQ/L Chloride Level 95 MEQ/L Carbon Dioxide Level 31.2 MEQ/L Anion Gap 10 MEQ/L Blood Urea Nitrogen 12 MG/DL Creatinine 0.47 MG/DL Estimat Glomerular Filtration 134 ML/MIN Rate Random Glucose 122 MG/DL Calcium Level 8.9 MG/DL Magnesium Level 2.1 MG/DL Assessment and Plan Assessment and Plan PAF today, currently sinus tachy -CHADS-VASc score 2, HTN female, on heparin -pt refused metoprolol...encouraged to take meds Cardiomyopathy- EF 30%-tachy vs other; she is not a revasc candidate - on BB - add mireya Lung mass. - This will be managed by the primary team. Hypertension - Macie Coleman MD Nov 04, 2016 07:54
[2016-11-04] MEDS ORDERED: RESP: ALBUTEROL 2.5 MG/3 ML NEB (PRN) NEB (08:45)
[2016-11-04] MEDS: MORPHINE SULFATE 4 MG/ML INJ IV PRN ×4 (08:54→20:54)
[2016-11-04] MEDS: FAMOTIDINE 20 MG/2 ML VIAL IV PUSH SCH ×2 (08:55→20:53)
[2016-11-04] MEDS: BUDESONIDE-FORMOTEROL 160/4.5 MCG INHALER INH SCH (08:55)
[2016-11-04] MEDS: guaiFENesin E.R. 600 MG TAB PO SCH ×2 (09:00→20:53)
[2016-11-04] MEDS: DOCUSATE SODIUM 50 MG/SENNA 8.6 MG TAB PO SCH ×2 (09:00→20:53)
[2016-11-04] MEDS ORDERED: LISINOPRIL 5 MG TAB PO SCH (09:00)
[2016-11-04] MEDS ORDERED: NITROGLYCERIN 2% OINT 1 GM PACKET TOPICAL PRN (09:00)
[2016-11-04] MEDS ORDERED: POTASSIUM CHLORIDE 10 MEQ CONTROLLED RELEASE TAB PO ONE (09:00)
--- NOTE | 2016-11-04 09:03 | HHI.CCPN ---
Subjective Remarks/Hospital Course 61-year-old female presents due to shortness of breath. She arrives by EMS. She has a smoking history one pack per day. She reports chest pain for today. Her shortness of breath has steadily worsened. A cough is noted along with hot flashes. Cough is productive of white phlegm. She has no similar history prior to this event. CT of the chest revealed Right lower lobe masses in addition to the extensive metastatic adenopathy within the mediastinum and huge mass or malignant adenopathy in the right hilum. Significant mass effect on the main pulmonary artery and right-sided pulmonary arteries in addition to right main bronchus. 11/03 No events overnight. Patient is lying in bed in no acute resp distress. For CT guided biopsy of lung mass today. On 2L oxygen. Subjective 11/04 - overnight. 2 L to 13 L partial nonrebreather. Currently satting in 100 % tonight shortness of breath. States she will have lung biopsy today. Refusing medications however. Objective Vital Signs Date Time Temp Pulse Resp B/P Pulse Ox O2 Delivery O2 Flow Rate FiO2 11/04/16 06:00 111 11/04/16 04:30 98.7 21 125/66 100 11/03/16 21:12 Partial Rebreather 13.00 11/03/16 21:05 50 Intake and Output 11/03/16 11/03/16 11/04/16 08:00 16:00 00:00 Intake Total 715 ml 840 ml 400 ml Output Total 200 ml 600 ml 450 ml Balance 515 ml 240 ml -50 ml Result Diagram: 11/03/16 0333 11/04/16 0507 Other Results Microbiology Date/Time Procedure Status Source Growth 11/01/16 23:15 Aerobic Blood Culture - Preliminary Resulted Blood Peripheral NO GROWTH IN 2 DAYS 11/01/16 23:15 Anaerobic Blood Culture - Preliminary Resulted Blood Peripheral NO GROWTH IN 2 DAYS Imaging Last Impressions CT Angiography 11/02/160 Signed Impressions: Service Date/Time: Wednesday, November 02, 2016 00:13 - CONCLUSION: Right lower lobe masses in addition to the extensive metastatic adenopathy within the mediastinum and huge mass or malignant adenopathy in the right hilum. Significant mass effect on the main pulmonary artery and right-sided pulmonary arteries in addition to right main bronchus. Yue Hickey MD Chest X-Ray 11/01/163 Signed Impressions: Service Date/Time: Tuesday, November 01, 2016 21:55 - CONCLUSION: Bilateral hilar masses and patchy airspace disease, both right larger than left. Also a small right pleural effusion. Jt Jiang MD Objective Remarks GENERAL: 61-year-old female, critically ill appearing cachectic currently on nonrebreather SKIN: Warm and dry. No rash HEAD: Normocephalic. EYES: Pupils equally round and reacted about 2 mm bilaterally. No scleral icterus. No injection or drainage. NECK: Supple, trachea midline. Shotty cervical chain CARDIOVASCULAR: Tachycardic, RR. S1, S2. No S4. Without murmur RESPIRATORY: Diminished breath sounds throughout the lung garrett on the right. Positive end expiratory wheeze bilaterally. GASTROINTESTINAL: Abdomen soft, non-tender, nondistended. Scaphoid abdomen MUSCULOSKELETAL: No redness in peripheral edema. BACK: Nontender without obvious deformity. No CVA tenderness. Neuro: Cranial nerves II through XII grossly intact. Moves all 4 extremities spontaneously to command. Normal sensation A/P Assessment and Plan 1)Respiratory failure 2)Right lung masses with mediastinal adenopathy r/o bronchogenic ca 3)Hypertension 4)Elevated tropeolins 6)Anemia 7)Active tobacco use 8)Leukocytosis 9)PAF Plan Neuro/Psych: Acetaminophen for fever Morphine for pain management Monitor neuro status and limit sedatives Will need brain imaging for likely cancer diagnosis Pulm: Acute hypoxemic respiratory failure with likely. Pneumonia Right lung masses Ongoing tobaccoism Continue with oxygen keep sat >92%. On nonrebreather overnight. Will wean as having 100% Duo nebs every 6 hours with albuterol every 2 hours. Dyspnea , Soumederol 60mg Q8 Symbicort 160/4.5 2 puffs twice a day CT chest 11/02 revealed subcarinal/right hilar mass effect lymphadenopathy right mass impinging right upper/middle pulmonary arteries. Right main 70%. 2 large right lower lobe lung masses to 3.8 and 2.8 cm. Likely postobstructive pneumonia NIPPV PRN for resp distress. Pulm is following- Dr. Sosa For CT guided biopsy lung mass today Nicotine patch daily CV: Elevated troponin 1.12 PAF currently sinus tach Hypertension Severe pulmonary hypertension Trivial pericardial fusion Monitor HR and BP keep MAP>65mmHg Patient went into Afib with RVR yesterday now sinus tach Cards is following- Dr. Coleman. Lopressor 25mg Q8 and Prinivil 5 mill grams daily As needed labetalol/hydralazine/Nitropaste for hypertension 2-D echo revealed EF 30%. Global hypokinesis. Severe MR. Moderate AR. Mild TR. Severe pulmonary hypertension with AMOR 67 mmHg Will need gentle diuresis with Lasix /FEN: Hypokalemia Monitor renal function, electrolytes replacement per protocol. 40 mgEq potassium chloride 1 now. Recheck in a.m. GI: Speech Therapy evaluate and treat Keep NPO her lung biopsy today On Pepcid for GI prophylaxis Jonelle-Colace for bowel regimen ID: Likely postobstructive pneumonia Continue with abx (Zosyn)monitor for signs of infections (Fever, WBC) BC from 11/01 : NGTD Heme: Leukocytosis Normocytic anemia Monitor CBC, Onc is following-Dr. Faustin, Rad onc is following as well patient will likely need radiation treatment and Chemo. Will need imaging of brain, abdomen pelvis once biopsy completed Endo: SSI for glycemic control GI prophylaxis- On Pepcid DVT prophylaxis- On Heparin SQ Level 3 Shahab Kolb MD Nov 04, 2016 09:02
[2016-11-04] MEDS: LABETALOL HCL 100 MG/20 ML VIAL IV PUSH PRN ×5 (10:17→21:13)
[2016-11-04 10:31] LABS: BLOOD GAS BASE EXCESS 6.7 mmol/L (-2-2); BLOOD GAS CARBOXYHEMOGLOBIN 1.2 % (0-4); BLOOD GAS HCO3 32 mmol/L (22-26); BLOOD GAS O2 HGB SATURATION 97 % (90-100); BLOOD GAS OXYGEN CONTENT 14.7 Vol % (12.0-20.0); BLOOD GAS PCO2 54 mmHg (38-42); BLOOD GAS PO2 155 mmHg (61-120); BLOOD GAS TOTAL HGB 10.5 G/DL (12.0-16.0); CRITICAL VALUE YES; TEMP CORR TO 98.6
[2016-11-04 10:32] LABS: DRAW SITE LT RADIAL; LITER FLOW 15 L/M; NUMBER OF ARTERIAL PUNCTURES 1; OXYGEN DEVICE PRB; STAT YES; ULNAR PULSE PRESENT
[2016-11-04 10:37] LABS: AUTOMATED NEUTROPHIL # 11.6 TH/MM3 (1.8-7.7); BASOPHIL % 0.1 % (0.0-2.0); HEMO FLAGS DIFF FINAL; LYMPHOCYTE # 0.7 TH/MM3 (1.0-4.8); MEAN CELL VOLUME 92.6 FL (80.0-100.0); MEAN CORPUSCULAR HEMOGLOBIN 30.4 PG (27.0-34.0); MEAN CORPUSCULAR HGB CONC 32.8 % (32.0-36.0); MONO % 6.9 % (0.0-8.0); PLATELET COUNT 425 TH/MM3 (150-450); RED BLOOD COUNT 3.46 MIL/MM3 (4.00-5.30); RED CELL DISTRIBUTION WIDTH 15.9 % (11.6-17.2); WHITE BLOOD COUNT 13.2 TH/MM3 (4.0-11.0)
--- NOTE | 2016-11-04 12:08 | RADRPT ---
EXAM DATE/TIME: 11/04/2016 11:01 [facility] COMPARISON: CHEST SINGLE AP, November 01, 2016, 21:55. INDICATIONS : Short of breath. MEDICAL HISTORY : None. SURGICAL HISTORY : None. ENCOUNTER: Subsequent ACUITY: 2 days PAIN SCORE: 6/10 LOCATION: all over FINDINGS: The exam demonstrates a large right hilar mass. There is consolidation of the right lower lobe. The l eft lung demonstrates chronic interstitial changes. There is extensive mediastinal adenopathy. The he art is mildly enlarged. The bony structures are grossly intact. The CONCLUSION: 1. Large mass predominantly right hilar in location with atelectasis of the right middle lower lobe. The atelectasis is new compared to prior exam. There is extensive mediastinal adenopathy. Roscoe Alas MD on November 04, 2016 at 12:04 Board Certified Radiologist. This report was verified electronically.
--- NOTE | 2016-11-04 13:20 | PD.ONC.PN ---
Subjective Subjective Remarks Afebrile overnight. Patient refused CT yesterday and is considering refusing again today. Sister and daughter at bedside. Daughter is emotional and distraught. Objective Data Date Time Temp Pulse Resp B/P Pulse Ox O2 Delivery O2 Flow Rate FiO2 11/04/16 08:59 100 Partial Rebreather 15.00 11/04/16 06:00 111 11/04/16 04:30 98.7 113 21 125/66 100 11/04/16 04:00 111 11/04/16 04:00 98.7 113 21 184/85 100 11/04/16 02:00 111 11/04/16 00:00 98.7 92 21 132/63 100 11/04/16 00:00 111 11/03/16 22:00 111 11/03/16 21:12 99 Partial Rebreather 13.00 11/03/16 21:05 87 Venturi Mask 6.00 50 11/03/16 20:45 83 Nasal Cannula 2.00 11/03/16 20:06 Nasal Cannula 2.00 11/03/16 20:00 98.3 111 24 107/70 100 11/03/16 20:00 111 11/03/16 18:00 91 11/03/16 16:00 91 11/03/16 16:00 98.3 75 24 146/70 100 11/03/16 14:00 91 11/04/16 11/04/16 11/04/16 07:00 15:00 23:00 Intake Total 225 ml Output Total 525 ml Balance -300 ml Result Diagram: 11/04/16 1022 11/04/16 0507 Laboratory Results Laboratory Tests Test 11/03/16 11/04/16 11/04/16 11/04/16 23:01 05:07 10:21 10:22 Potassium Level 3.6 MEQ/L 3.5 MEQ/L Phosphorus Level 3.0 MG/DL 3.1 MG/DL Sodium Level 136 MEQ/L Chloride Level 95 MEQ/L Carbon Dioxide Level 31.2 MEQ/L Anion Gap 10 MEQ/L Blood Urea Nitrogen 12 MG/DL Creatinine 0.47 MG/DL Estimat Glomerular Filtration 134 ML/MIN Rate Random Glucose 122 MG/DL Calcium Level 8.9 MG/DL Magnesium Level 2.1 MG/DL Blood Gas Puncture Site LT RADIAL Blood Gas Patient Temperature 98.6 Blood Gas HCO3 32 mmol/L Blood Gas Base Excess 6.7 mmol/L Blood Gas Oxygen Saturation 97 % Arterial Blood pH 7.39 Arterial Blood Partial 54 mmHg Pressure CO2 Arterial Blood Partial 155 mmHg Pressure O2 Arterial Blood Oxygen Content 14.7 Vol % Arterial Blood 1.2 % Carboxyhemoglobin Arterial Blood Methemoglobin 1.0 % Blood Gas Hemoglobin 10.5 G/DL Oxygen Delivery Device PRB Blood Gas Liter Flow 15 L/M White Blood Count 13.2 TH/MM3 Red Blood Count 3.46 MIL/MM3 Hemoglobin 10.5 GM/DL Hematocrit 32.0 % Mean Corpuscular Volume 92.6 FL Mean Corpuscular Hemoglobin 30.4 PG Mean Corpuscular Hemoglobin 32.8 % Concent Red Cell Distribution Width 15.9 % Platelet Count 425 TH/MM3 Mean Platelet Volume 8.7 FL Neutrophils (%) (Auto) 88.0 % Lymphocytes (%) (Auto) 5.0 % Monocytes (%) (Auto) 6.9 % Eosinophils (%) (Auto) 0.0 % Basophils (%) (Auto) 0.1 % Neutrophils # (Auto) 11.6 TH/MM3 Lymphocytes # (Auto) 0.7 TH/MM3 Monocytes # (Auto) 0.9 TH/MM3 Eosinophils # (Auto) 0.0 TH/MM3 Basophils # (Auto) 0.0 TH/MM3 CBC Comment DIFF FINAL Differential Comment Culture Results Microbiology Date/Time Procedure Status Source Growth 11/01/16 23:00 Aerobic Blood Culture - Preliminary Resulted Blood Peripheral NO GROWTH IN 3 DAYS 11/01/16 23:00 Anaerobic Blood Culture - Preliminary Resulted Blood Peripheral NO GROWTH IN 3 DAYS 11/01/16 23:15 Aerobic Blood Culture - Preliminary Resulted Blood Peripheral NO GROWTH IN 3 DAYS 11/01/16 23:15 Anaerobic Blood Culture - Preliminary Resulted Blood Peripheral NO GROWTH IN 3 DAYS Imaging Studies Last 24 hours Impressions Chest X-Ray 11/04/16 0000 Signed Impressions: Service Date/Time: October 11:01 - CONCLUSION: 1. Large mass predominantly right hilar in location with atelectasis of the right middle lower lobe. The atelectasis is new compared to prior exam. There is extensive mediastinal adenopathy. Roscoe Alas MD Administered Medications Medications (Trade) Dose Ordered Sig/Estela Route PRN Reason Start Time Stop Time Status Last Admin Dose Admin Sodium Chloride (NS Flush) 2 ml UNSCH PRN IVF FLUSH AFTER USING IV ACCESS 11/01/16 21:45 11/01/16 22:29 Sodium Chloride (NS Flush) 2 ml UNSCH PRN .XX FLUSH AFTER USING IV ACCESS 11/02/16 02:45 11/03/16 03:35 Sodium Chloride (NS Flush) 2 ml BID IV FLUSH 11/02/16 09:00 11/04/16 07:40 Morphine Sulfate (Morphine Inj) 2 mg Q2H PRN IV PAIN SCALE 6 TO 10 11/02/16 02:45 11/04/16 12:15 Famotidine (Pepcid Inj) 20 mg Q12HR IV PUSH 11/02/16 09:00 11/04/16 08:55 Lorazepam (Ativan Inj) 2 mg Q4H PRN IV Agitation/Sedation 11/02/16 02:45 11/04/16 01:39 Heparin Sodium (Porcine) (Heparin Inj) 5,000 units Q8H SQ 11/02/16 02:45 11/04/16 01:54 Chlorhexidine Gluconate (Chlorhexidine 2% Cloth) 3 pack Taper DAILY@04 TOP 11/02/16 04:00 10/29/17 03:59 11/03/16 19:33 Senna/Docusate Sodium (Jonelle-Colace) 1 tab BID PO 11/02/16 09:00 11/03/16 19:59 Methylprednisolone Sodium Succinate 60 mg 60 mg Q8HR IV PUSH 11/02/16 14:00 11/04/16 04:56 Piperacillin Sod/ Tazobactam Sod (Zosyn 4.5 Gm Premix) 100 ml @ 200 mls/hr Q6H IV 11/02/16 13:00 11/04/16 12:15 Budesonide/ Formoterol Fumarate (Symbicort 160-4.5 Inh) 2 puff Q12HR INH 11/02/16 13:00 11/04/16 08:55 Metoprolol Tartrate (Lopressor Inj) 10 mg Q4H PRN IV PUSH FOR HYPERTENSION 11/03/16 03:30 11/04/16 07:40 Metoprolol Tartrate 25 mg 25 mg Q8HR PO 11/03/16 14:00 11/03/16 20:40 Potassium Phosphate/Sodium Chloride (Potassium Phosphate Inj/NS 250 ml Inj) 260 ml @ 42 mls/hr UNSCH PRN IV SEE LABEL COMMENTS 11/03/16 08:45 11/03/16 12:30 Hydralazine HCl (Apresoline Inj) 10 mg Q6H PRN IV PUSH SYS BP GREATER THAN 160 MMHG 11/03/16 16:00 11/03/16 18:25 Lisinopril (Prinivil) 5 mg DAILY PO 11/04/16 09:00 11/04/16 09:07 Labetalol HCl (Trandate Inj) 10 mg Q1HR PRN IV PUSH SBP>170, DBP>90, HR>65 11/04/16 09:00 11/04/16 12:32 Objective Remarks GENERAL: Weak elderly female, lying in bed. SKIN: Warm and dry. HEAD: Normocephalic. EYES: No injection or drainage. NECK: Supple, trachea midline. CARDIOVASCULAR: +S1/S2 RESPIRATORY: diminished at bases. scattered rhonchi. on 15L O2 via NRB GASTROINTESTINAL: Abdomen soft, non-tender, nondistended. EXTREMITIES: No cyanosis NEUROLOGICAL: somnolent and weak. able to move extremities. Assessment/Plan Problem List: (1) Lung mass Status: Acute Plan: --Right lower lobe mass with extensive metastatic adenopathy within the mediastinum and a large mass in the right hilum. Also significant mass effect on the main pulmonary artery and the right-sided pulmonary artery and right main bronchus. --highly suspicious for bronchogenic carcinoma. --need biopsy for confirmation --Due to bulky disease in her chest, she is at risk for acute decompensation. Assessment 61y/o admitted with weakness, heart palpitations and chest pain. Oncology consulted for multiple lung lesions. h/o Hypertension. atrial fibrillation Plan 1. per case management note, patient has made daughter and sister healthcare surrogate. will need to have formal paperwork. Sister-->Shy Lomax , Daughter Janki Hays [phone] 2. agree with palliative care consult--this patient is extremely weak and is considering refusing CT guided biopsy again today. she will likely end up intubated if she continues to deteriorate clinically. discussed code status with patient, daughter and sister. Discussed that the patient is currently a full code. They are going to discuss as a family and make a decision regarding code status at a later date. Attending Statement The exam, history, and the medical decision-making described in the above note were completed with the assistance of the mid-level provider. I reviewed and agree with the findings presented. I attest that I had a [id number] encounter with the patient on the same day, and personally performed and documented my assessment and findings in the medical record further clinical deterioration. over all prognosis is poor agree with palliative care. Family wants full support for now. patient has declined biopsy for now d/w rn and other team members. Joan Adams Nov 04, 2016 13:20 Milad Faustin MD Nov 04, 2016 23:42
--- NOTE | 2016-11-04 14:37 | PD.CONS ---
Consult Service Palliative Care . Consult Requested By Dr. Kolb . Primary Care Physician No Primary Care Physician . Reason for Consultation a. To assist with evaluation and management of symptoms including: dyspnea, agitation, pain b. To assist medical decision maker(s) with: better understanding of current medical conditions; weighing benefits/burdens of medical treatment options; making medical treatment decisions. . HPI History of Present Illness Ms. Perales is a 61-year-old female who presented to [facility] ED on 11/01/2016 for evaluation of shortness of breath and chest pain. Patient's past medical history includes hypertension and MRSA+ wound in 2016. She is an active smoker with a 30+ pack year history. Patient reported moderate, generalized chest pain that was intermittent with no provocative factors. Patient also reported a productive cough with white phlegm, dyspnea on exertion and orthopenia. Diagnostic findings while in the ED include: * Vital signs: Pulse 101, respirations 24, BP 177/79, oxygen saturation 100% on 8 L via nonrebreather, oral temperature 98.2 * WBC: 12.2, hemoglobin 10.9, hematocrit 32.6, platelets 433, neutrophils 71.9% * Sodium 132, potassium 3.7, chloride 93, carbon dioxide 28.2, glucose 137, calcium 8.9 * BUN: 6, creatinine 0.47, GFR 134 * Troponin: 0.42 * BNP: 1177 * Blood culturesshowing no growth in 3 days * Chest x-ray showed bilateral hilar masses and patchy airspace disease, right larger than left; small right pleural effusion. * EKG revealed a sinus tachycardia with a rate of 101, ST changes are noted in the precordial leads * CTA with right lower lobe mass is an addition to the extensive metastatic adenopathy with the mediastinum and a huge mass or malignant adenopathy in the right hilum; significant mass effect on the main pulmonary artery and right sided pulmonary arteries in addition to the main bronchus. Ms. Perales was admitted for further evaluation and medical management of dyspnea presumably secondary to intrathoracic masses which are presumably neoplastic. Discussed with Dr. Sanchez, cardiothoracic surgery, who will evaluate the patient but reported there was no indication for emergent surgical interventions at that time. Radiation oncology, medical oncology and pulmonology were also consulted. The patient underwent a cardiac workup for atrial fibrillation with RVR. Patient's troponin was elevated; Cardiology (Dr. Coleman) was consulted for recommendations. The patient responded to responded to IV metoprolol and digoxin- will attempt to medically manage with low-dose metoprolol. CHADS-VASc score of 2, on heparin drip. Echocardiogram on 11/03/16 revealed systolic function is moderately to severely reduced with EF of 30%. Both Dr. Faustin (medical oncology) and Dr. Alvarez (radiation oncology) were consulted to evaluate this patient due recent CTA findings, highly suspicious for bronchogenic carcinoma. There are 2 separate masses in the right lower lobe measuring 3.8 and 2.8 cm in size, the main pulmonary artery is compressed by nearly 70%. CT guided biopsy of the mediastinal mass is necessary. Possible radiation treatment and/or chemotherapy dependent on pathology results. Pulmonology is also following this patient. She remains breathing treatments, IV Solu-Medrol and IV antibiotics. A CT guided biopsy of the lung mass was plan for 11/03/16 but the patient refused secondary to fatigue and pain. Chest x- ray on 11/04/2016 showing a large mass predominantly right hilar location with atelectasis of the right middle lower lobe; atelectasis is new in comparison to prior imaging; there is extensive mediastinal adenopathy. Palliative Care was consulted to assist with symptom management and to discuss with the patient/family the benefits and burdens of her current illnesses and the options regarding future care. . Function/Cognitive Trajectory Patient is a 61-year-old female who presented to [facility] ED on 11/01/16 with reports of new onset shortness of breath and chest pain. However, patient's sister states the patient had been declining over the past several months. She states the patient had become primarily bedbound in recent weeks secondary to progressively increased weakness and poor appetite. A 15-20 pound weight loss is reported since August,. . Review of Systems ROS Limitations: Clinical Condition, Altered Mental Status, Speech Impaired ( secondary to dyspnea) Constitutional: COMPLAINS OF: Fatigue, Weight loss (10-20 pound weight loss reported since August,), Change in appetite (poor appetite), Night Sweats, Generalized weakness Endocrine: DENIES: Polydipsia, Polyuria, Polyphagia Ears, nose, mouth, throat: DENIES: Hearing loss, Epistaxis Respiratory: COMPLAINS OF: Cough (productive cough with white phlegm), Sputum production, Shortness of breath, DENIES: Hemoptysis Cardiovascular: COMPLAINS OF: Chest pain, Orthopnea, DENIES: Lower Extremity Edema Gastrointestinal: COMPLAINS OF: Anorexia Hematologic/Lymphatics: COMPLAINS OF: Bruising Psychiatric: COMPLAINS OF: Confusion, Agitation Past Family Social History Coded Allergies: *MDRO Multi-Drug Resistant Organism (Verified Allergy, Unknown, 11/01/16) MRSA 12/2012 leg wound Past Medical History Hypertension Tobacco abuse History of wound infection with [id number] . Past Surgical History History of adenoid surgery . Reported Medications Tramadol (Tramadol HCl) 50 Mg Tab 50 Mg PO Q6H PRN . Current Medications Medications (Trade) Dose Ordered Sig/Estela Route Start Time Stop Time Status Last Admin (NS Flush) 2 ml UNSCH PRN IVF 11/01/16 21:45 11/01/16 22:29 (NS Flush) 2 ml UNSCH PRN .XX 11/02/16 02:45 11/03/16 03:35 (NS Flush) 2 ml BID IV FLUSH 11/02/16 09:00 11/04/16 07:40 (Tylenol) 650 mg Q6H PRN PO 11/02/16 02:45 (Morphine Inj) 2 mg Q2H PRN IV 11/02/16 02:45 11/04/16 12:15 (Pepcid Inj) 20 mg Q12HR IV PUSH 11/02/16 09:00 11/04/16 08:55 (Ativan Inj) 2 mg Q4H PRN IV 11/02/16 02:45 11/04/16 01:39 (Zofran Inj) 4 mg Q6H PRN IV 11/02/16 02:45 (Reglan Inj) 10 mg Q6H PRN IV 11/02/16 02:45 (Compazine Supp) 25 mg Q12H PRN RECTAL 11/02/16 02:45 (Ambien) 5 mg HS PRN PO 11/02/16 02:45 (Heparin Inj) 5,000 units Q8H SQ 11/02/16 02:45 11/04/16 01:54 Miscellaneous Information 1 Q361D XX 11/02/16 02:45 (Chlorhexidine 2% Cloth) 3 pack Taper DAILY@04 TOP 11/02/16 04:00 10/29/17 03:59 11/03/16 19:33 (Chlorhexidine 2% Cloth) 3 pack UNSCH PRN TOP 11/02/16 02:45 (Jonelle-Colace) 1 tab BID PO 11/02/16 09:00 11/03/16 19:59 (Milk Of Magnesia Liq) 30 ml Q12H PRN PO 11/02/16 02:45 (Senokot) 17.2 mg Q12H PRN PO 11/02/16 02:45 (Dulcolax Supp) 10 mg DAILY PRN RECTAL 11/02/16 02:45 (Lactulose Liq) 30 ml DAILY PRN PO 11/02/16 02:45 Methylprednisolone Sodium Succinate 60 mg 60 mg Q8HR IV PUSH 11/02/16 14:00 11/04/16 04:56 (Zosyn 4.5 Gm Premix) 100 ml @ 200 mls/hr Q6H IV 11/02/16 13:00 11/04/16 12:15 (Symbicort 160-4.5 Inh) 2 puff Q12HR INH 11/02/16 13:00 11/04/16 08:55 (Lopressor Inj) 10 mg Q4H PRN IV PUSH 11/03/16 03:30 11/04/16 07:40 Metoprolol Tartrate 25 mg 25 mg Q8HR PO 11/03/16 14:00 11/03/16 20:40 Potassium Chloride 100 ml @ 50 mls/hr Q2H PRN IV 11/03/16 08:45 (KCl 20 Meq Premix Inj) 100 ml @ 50 mls/hr Q2H PRN IV 11/03/16 08:45 Potassium Bicarb/ Potassium Chloride 50 meq 50 meq UNSCH PRN PO 11/03/16 08:45 Potassium Chloride 100 ml @ 25 mls/hr UNSCH PRN IV 11/03/16 08:45 Potassium Chloride 100 ml @ 50 mls/hr Q2H PRN IV 11/03/16 08:45 (Magnesium Sulfate Inj/NS Inj) 100 ml @ 50 mls/hr UNSCH PRN IV 11/03/16 08:45 Magnesium Oxide 800 mg 800 mg UNSCH PRN PO 11/03/16 08:45 (Magnesium Sulfate Inj/NS Inj) 100 ml @ 50 mls/hr UNSCH PRN IV 11/03/16 08:45 Potassium Phosphate 2000 mg 2,000 mg Q4H PRN PO 11/03/16 08:45 (Sodium Phosphate Inj/NS 250 ml Inj) 250 ml @ 42 mls/hr UNSCH PRN IV 11/03/16 08:45 Potassium Phosphate 2000 mg 2,000 mg UNSCH PRN PO/TUBE 11/03/16 08:45 (Potassium Phosphate Inj/NS 250 ml Inj) 260 ml @ 42 mls/hr UNSCH PRN IV 11/03/16 08:45 11/03/16 12:30 (D50w (Vial) Inj) 50 ml UNSCH PRN IV 11/03/16 09:00 (Glucagon Inj) 1 mg UNSCH PRN OTHER 11/03/16 09:00 (Apresoline Inj) 10 mg Q6H PRN IV PUSH 11/03/16 16:00 11/03/16 18:25 (Mucinex Er) 600 mg BID PO 11/04/16 09:00 (Prinivil) 5 mg DAILY PO 11/04/16 09:00 11/04/16 09:07 (Trandate Inj) 10 mg Q1HR PRN IV PUSH 11/04/16 09:00 11/04/16 12:32 (Nitroglycerin 2% Oint) 1 inch Q6HR PRN TOPICAL 11/04/16 09:00 (NovoLIN R SUPPLEMENTAL SCALE) 1 ACHS SQ 11/04/16 11:00 (Habitrol 14 Mg Patch.24 Hr) 1 patch DAILY T-DERMAL 11/05/16 09:00 Miscellaneous Information 1 HS T-DERMAL 11/04/16 21:00 . Family History Familial history of heart disease. Patient's father had heart disease status post myocardial infarction. Patient's mother from complications related to CVA. . Substance Use Tobacco: Extensive history of smoking, >[id number]. Alcohol: Patient does not drink alcohol Prescription med abuse: None known Illicits: None known Psychosocial History Patient is originally from [place]. She lives with her daughter and her 3-year- old grandchild. . Spiritual/Cultural Factors Holiness samia . Health Care Surrogate: Copy in medical record Health Care Surrogate(s): Patient's sister, Shy Lomax is designated as the healthcare surrogate decision maker. Her daughter, Janki Hays, is the alternate health care surrogate . Today's verbally stated goals: Patient is agitated secondary to increasing respiratory distress; she is unable to verbalize medical treatment goals at this time. . Family/friends goals: Aggressive up to the point of cardiopulmonary resuscitation. . Ethical and Legal Issues No known ethical or legal issues impacting care at this time. . Physical Exam Vital Signs Date Time Temp Pulse Resp B/P Pulse Ox O2 Delivery O2 Flow Rate FiO2 11/04/16 08:59 100 Partial Rebreather 15.00 11/04/16 06:00 111 11/04/16 04:30 98.7 113 21 125/66 100 11/04/16 04:00 111 11/04/16 04:00 98.7 113 21 184/85 100 11/04/16 02:00 111 11/04/16 00:00 98.7 92 21 132/63 100 11/04/16 00:00 111 11/03/16 22:00 111 11/03/16 21:12 99 Partial Rebreather 13.00 11/03/16 21:05 87 Venturi Mask 6.00 50 11/03/16 20:45 83 Nasal Cannula 2.00 11/03/16 20:06 Nasal Cannula 2.00 11/03/16 20:00 98.3 111 24 107/70 100 11/03/16 20:00 111 11/03/16 18:00 91 11/03/16 16:00 91 11/03/16 16:00 98.3 75 24 146/70 100 11/03/16 14:00 91 . 11/03/16 11/04/16 19:00 07:00 Intake Total 840 ml 625 ml Output Total 600 ml 975 ml Balance 240 ml -350 ml Intake Oral 280 ml 225 ml IV Total 560 ml 400 ml Output Urine Total 600 ml 975 ml # Voids 4 8 . Exam CONSTITUTIONAL/GENERAL: This is a cachectic, elderly female patient experiencing moderate respiratory distress TUBES/LINES/DRAINS: PIV 1 SKIN: No jaundice, rashes, or lesions. Ecchymoses on upper extremities. No wounds seen anteriorly. Skin temperature appropriate. Not diaphoretic. HEAD: Atraumatic. Normocephalic. EYES: Pupils equal and round and reactive. No scleral icterus. No injection or drainage. Fundi not examined. ENT: Hearing grossly normal. Nose without bleeding or purulent drainage. NECK: Trachea midline. CARDIOVASCULAR: Tachycardic. Regular rhythm without murmurs, gallops, or rubs. RESPIRATORY/CHEST: Tachypneic. Breath sounds diminished bilaterally, right greater than left. GASTROINTESTINAL: Abdomen soft, non-tender, nondistended. GENITOURINARY: Without palpable bladder distension. MUSCULOSKELETAL: No obvious deformities. Extremities without clubbing, cyanosis , or edema. LYMPHATICS: No palpable cervical or supraclavicular adenopathy. NEUROLOGICAL: Confused, pulling off oxygen mask likely secondary to increasing dyspnea. Responds to some questions with 12 word answers, follows some commands. PSYCHIATRIC: No apparent hallucinations or other psychotic thought process. . Diagnostic Tests Laboratory Laboratory Tests Test 11/01/16 11/01/16 11/02/16 11/02/16 21:45 22:50 03:00 04:04 White Blood Count 12.2 TH/MM3 (4.0-11.0) Red Blood Count 3.56 MIL/MM3 (4.00-5.30) Hemoglobin 10.9 GM/DL (11.6-15.3) Hematocrit 32.6 % (35.0-46.0) Mean Corpuscular Volume 91.6 FL (80.0-100.0) Mean Corpuscular Hemoglobin 30.5 PG (27.0-34.0) Mean Corpuscular Hemoglobin 33.3 % Concent (32.0-36.0) Red Cell Distribution Width 15.7 % (11.6-17.2) Platelet Count 433 TH/MM3 (150-450) Mean Platelet Volume 9.1 FL (7.0-11.0) Neutrophils (%) (Auto) 71.9 % (16.0-70.0) Lymphocytes (%) (Auto) 21.4 % (9.0-44.0) Monocytes (%) (Auto) 6.1 % (0.0-8.0) Eosinophils (%) (Auto) 0.1 % (0.0-4.0) Basophils (%) (Auto) 0.5 % (0.0-2.0) Neutrophils # (Auto) 8.8 TH/MM3 (1.8-7.7) Lymphocytes # (Auto) 2.6 TH/MM3 (1.0-4.8) Monocytes # (Auto) 0.8 TH/MM3 (0-0.9) Eosinophils # (Auto) 0.0 TH/MM3 (0-0.4) Basophils # (Auto) 0.1 TH/MM3 (0-0.2) CBC Comment DIFF FINAL Differential Comment Sodium Level 132 MEQ/L (136-145) Potassium Level 3.7 MEQ/L (3.5-5.1) Chloride Level 93 MEQ/L (98-107) Carbon Dioxide Level 28.2 MEQ/L (21.0-32.0) Anion Gap 11 MEQ/L (5-15) Blood Urea Nitrogen 6 MG/DL (7-18) Creatinine 0.47 MG/DL (0.50-1.00) Estimat Glomerular Filtration 134 ML/MIN Rate (>89) Random Glucose 137 MG/DL (74-106) Calcium Level 8.9 MG/DL (8.5-10.1) Troponin I 0.42 NG/ML 0.52 NG/ML (0.02-0.05) (0.02-0.05) B-Type Natriuretic Peptide 1177 PG/ML (0-100) Prothrombin Time 11.8 SEC (9.8-11.6) Prothromb Time International 1.1 RATIO Ratio Test 11/02/16 11/02/16 11/02/16 11/02/16 04:55 12:15 13:06 17:39 Activated Partial 38.3 SEC 33.1 SEC Thromboplast Time (24.3-30.1) (24.3-30.1) Nasal Screen MRSA (PCR) MRSA NOT DETECTED (NOT DETECT) White Blood Count 16.6 TH/MM3 (4.0-11.0) Red Blood Count 3.40 MIL/MM3 (4.00-5.30) Hemoglobin 10.2 GM/DL (11.6-15.3) Hematocrit 31.6 % (35.0-46.0) Mean Corpuscular Volume 92.9 FL (80.0-100.0) Mean Corpuscular Hemoglobin 29.9 PG (27.0-34.0) Mean Corpuscular Hemoglobin 32.2 % Concent (32.0-36.0) Red Cell Distribution Width 16.1 % (11.6-17.2) Platelet Count 420 TH/MM3 (150-450) Mean Platelet Volume 9.3 FL (7.0-11.0) Neutrophils (%) (Auto) 75.1 % (16.0-70.0) Lymphocytes (%) (Auto) 2.3 % (9.0-44.0) Monocytes (%) (Auto) 21.4 % (0.0-8.0) Eosinophils (%) (Auto) 0.9 % (0.0-4.0) Basophils (%) (Auto) 0.3 % (0.0-2.0) Neutrophils # (Auto) 12.5 TH/MM3 (1.8-7.7) Lymphocytes # (Auto) 0.4 TH/MM3 (1.0-4.8) Monocytes # (Auto) 3.6 TH/MM3 (0-0.9) Eosinophils # (Auto) 0.2 TH/MM3 (0-0.4) Basophils # (Auto) 0.0 TH/MM3 (0-0.2) CBC Comment AUTO DIFF Differential Comment AUTO DIFF CONFIRMED Platelet Estimate HIGH (NORMAL) Platelet Morphology Comment NORMAL (NORMAL) Red Cell Morphology Comment NORMAL (NORMAL) Sodium Level 134 MEQ/L (136-145) Potassium Level 4.3 MEQ/L (3.5-5.1) Chloride Level 98 MEQ/L (98-107) Carbon Dioxide Level 26.5 MEQ/L (21.0-32.0) Anion Gap 10 MEQ/L (5-15) Blood Urea Nitrogen 8 MG/DL (7-18) Creatinine 0.41 MG/DL (0.50-1.00) Estimat Glomerular Filtration 157 ML/MIN Rate (>89) Random Glucose 96 MG/DL (74-106) Calcium Level 8.8 MG/DL (8.5-10.1) Phosphorus Level 2.2 MG/DL (2.5-4.9) Magnesium Level 1.7 MG/DL (1.5-2.5) Total Bilirubin 0.4 MG/DL (0.2-1.0) Aspartate Amino Transf 47 U/L (15-37) (AST/SGOT) Alanine Aminotransferase 12 U/L (10-53) (ALT/SGPT) Alkaline Phosphatase 131 U/L (45-117) Troponin I 0.87 NG/ML (0.02-0.05) B-Type Natriuretic Peptide 746 PG/ML (0-100) Total Protein 7.1 GM/DL (6.4-8.2) Albumin 2.5 GM/DL (3.4-5.0) Test 11/03/16 11/03/16 11/03/16 11/04/16 03:33 11:46 23:01 05:07 White Blood Count 16.1 TH/MM3 (4.0-11.0) Red Blood Count 3.61 MIL/MM3 (4.00-5.30) Hemoglobin 10.9 GM/DL (11.6-15.3) Hematocrit 33.4 % (35.0-46.0) Mean Corpuscular Volume 92.4 FL (80.0-100.0) Mean Corpuscular Hemoglobin 30.1 PG (27.0-34.0) Mean Corpuscular Hemoglobin 32.6 % Concent (32.0-36.0) Red Cell Distribution Width 16.0 % (11.6-17.2) Platelet Count 428 TH/MM3 (150-450) Mean Platelet Volume 9.3 FL (7.0-11.0) Neutrophils (%) (Auto) 95.8 % (16.0-70.0) Lymphocytes (%) (Auto) 3.1 % (9.0-44.0) Monocytes (%) (Auto) 1.0 % (0.0-8.0) Eosinophils (%) (Auto) 0.0 % (0.0-4.0) Basophils (%) (Auto) 0.1 % (0.0-2.0) Neutrophils # (Auto) 15.4 TH/MM3 (1.8-7.7) Lymphocytes # (Auto) 0.5 TH/MM3 (1.0-4.8) Monocytes # (Auto) 0.2 TH/MM3 (0-0.9) Eosinophils # (Auto) 0.0 TH/MM3 (0-0.4) Basophils # (Auto) 0.0 TH/MM3 (0-0.2) CBC Comment DIFF FINAL Differential Comment Prothrombin Time 12.0 SEC (9.8-11.6) Prothromb Time International 1.1 RATIO Ratio Sodium Level 135 MEQ/L 136 MEQ/L (136-145) (136-145) Potassium Level 3.4 MEQ/L 3.6 MEQ/L 3.5 MEQ/L (3.5-5.1) (3.5-5.1) (3.5-5.1) Chloride Level 95 MEQ/L 95 MEQ/L (98-107) (98-107) Carbon Dioxide Level 28.0 MEQ/L 31.2 MEQ/L (21.0-32.0) (21.0-32.0) Anion Gap 12 MEQ/L (5-15) 10 MEQ/L (5-15) Blood Urea Nitrogen 8 MG/DL (7-18) 12 MG/DL (7-18) Creatinine 0.40 MG/DL 0.47 MG/DL (0.50-1.00) (0.50-1.00) Estimat Glomerular Filtration 162 ML/MIN 134 ML/MIN Rate (>89) (>89) Random Glucose 122 MG/DL 122 MG/DL (74-106) (74-106) Calcium Level 8.8 MG/DL 8.9 MG/DL (8.5-10.1) (8.5-10.1) Phosphorus Level 2.4 MG/DL 2.0 MG/DL 3.0 MG/DL 3.1 MG/DL (2.5-4.9) (2.5-4.9) (2.5-4.9) (2.5-4.9) Magnesium Level 2.0 MG/DL 2.1 MG/DL (1.5-2.5) (1.5-2.5) Total Bilirubin 0.3 MG/DL (0.2-1.0) Aspartate Amino Transf 29 U/L (15-37) (AST/SGOT) Alanine Aminotransferase 12 U/L (10-53) (ALT/SGPT) Alkaline Phosphatase 127 U/L (45-117) Total Protein 7.2 GM/DL (6.4-8.2) Albumin 2.7 GM/DL (3.4-5.0) Troponin I 1.12 NG/ML (0.02-0.05) Test 11/04/16 11/04/16 10:21 10:22 Blood Gas Puncture Site LT RADIAL Blood Gas Patient Temperature 98.6 Blood Gas HCO3 32 mmol/L (22-26) Blood Gas Base Excess 6.7 mmol/L (-2-2) Blood Gas Oxygen Saturation 97 % (90-100) Arterial Blood pH 7.39 (7.380-7.420) Arterial Blood Partial 54 mmHg (38-42) Pressure CO2 Arterial Blood Partial 155 mmHg Pressure O2 (61-120) Arterial Blood Oxygen Content 14.7 Vol % (12.0-20.0) Arterial Blood 1.2 % (0-4) Carboxyhemoglobin Arterial Blood Methemoglobin 1.0 % (0-2) Blood Gas Hemoglobin 10.5 G/DL (12.0-16.0) Oxygen Delivery Device PRB Blood Gas Liter Flow 15 L/M White Blood Count 13.2 TH/MM3 (4.0-11.0) Red Blood Count 3.46 MIL/MM3 (4.00-5.30) Hemoglobin 10.5 GM/DL (11.6-15.3) Hematocrit 32.0 % (35.0-46.0) Mean Corpuscular Volume 92.6 FL (80.0-100.0) Mean Corpuscular Hemoglobin 30.4 PG (27.0-34.0) Mean Corpuscular Hemoglobin 32.8 % Concent (32.0-36.0) Red Cell Distribution Width 15.9 % (11.6-17.2) Platelet Count 425 TH/MM3 (150-450) Mean Platelet Volume 8.7 FL (7.0-11.0) Neutrophils (%) (Auto) 88.0 % (16.0-70.0) Lymphocytes (%) (Auto) 5.0 % (9.0-44.0) Monocytes (%) (Auto) 6.9 % (0.0-8.0) Eosinophils (%) (Auto) 0.0 % (0.0-4.0) Basophils (%) (Auto) 0.1 % (0.0-2.0) Neutrophils # (Auto) 11.6 TH/MM3 (1.8-7.7) Lymphocytes # (Auto) 0.7 TH/MM3 (1.0-4.8) Monocytes # (Auto) 0.9 TH/MM3 (0-0.9) Eosinophils # (Auto) 0.0 TH/MM3 (0-0.4) Basophils # (Auto) 0.0 TH/MM3 (0-0.2) CBC Comment DIFF FINAL Differential Comment . Result Diagram: 11/04/16 1022 11/04/16 0507 Microbiology Microbiology Date/Time Procedure Status Source Growth 11/01/16 23:00 Aerobic Blood Culture - Preliminary Resulted Blood Peripheral NO GROWTH IN 3 DAYS 11/01/16 23:00 Anaerobic Blood Culture - Preliminary Resulted Blood Peripheral NO GROWTH IN 3 DAYS 11/01/16 23:15 Aerobic Blood Culture - Preliminary Resulted Blood Peripheral NO GROWTH IN 3 DAYS 11/01/16 23:15 Anaerobic Blood Culture - Preliminary Resulted Blood Peripheral NO GROWTH IN 3 DAYS . Imaging Last 72 hours Impressions Chest X-Ray 11/04/16 0000 Signed Impressions: Service Date/Time: October 11:01 - CONCLUSION: 1. Large mass predominantly right hilar in location with atelectasis of the right middle lower lobe. The atelectasis is new compared to prior exam. There is extensive mediastinal adenopathy. Roscoe Alas MD CT Angiography 11/02/160 Signed Impressions: Service Date/Time: Wednesday, November 02, 2016 00:13 - CONCLUSION: Right lower lobe masses in addition to the extensive metastatic adenopathy within the mediastinum and huge mass or malignant adenopathy in the right hilum. Significant mass effect on the main pulmonary artery and right-sided pulmonary arteries in addition to right main bronchus. KCarrie Hickey MD Chest X-Ray 11/01/162 Signed Impressions: Service Date/Time: Tuesday, November 01, 2016 21:55 - CONCLUSION: Bilateral hilar masses and patchy airspace disease, both right larger than left. Also a small right pleural effusion. Jt Jiang MD . Patient/Family Conference Present at Family Conference: With patient at bedside, spoke with patient's sister via telephone. Family Conference Location: Bedside Issues Discussed: * Palliative care role, purpose, approach * Additional medical, psychosocial, and spiritual history * Patients general health, functional status, and cognitive changes in the months leading up to the current hospitalization * Patient/family understanding of the current medical problems * Patient/family understanding of prognosis * Patients goals of care as best understood from advance directives and/or conversations and/or values * Current medical treatment options and benefits/burdens of those options * Likely scenarios comparing ongoing aggressive care with a transition to comfort measures only * Questions answered to the best of my ability * Palliative care contact information provided . Assessment and Plan Disease Oriented Problem List: (1) Lung mass (2) HTN (hypertension) Symptom Scale: (1) Pain (2) Agitation (3) Dyspnea Pertinent Non-Medical Issues Psychosocial: Patient is originally from [place]. She lives with her daughter and her 3-year-old grandchild. Spiritual: Holiness Asmia Legal:Patient's sister, Barbara Lomax, is the designated health care surrogate decision maker. DaughterJanki is the alternate health care surrogate. Ethical issues impacting care: No known ethical issues impacting care at this time. . Important Contacts Shy Lomax, sister/[facility]: [phone] Janki Hays, daughter: [phone] . Prognosis Patient is a 61-year-old female who has experienced an acute decline with rapid progression of dyspnea. CTA showing right lower lobe mass in addition to extensive metastatic adenopathy within the mediastinum; huge mass or malignant adenopathy in the right hilum; significant mass effect on the main pulmonary artery and right-sided pulmonary arteries in addition to the right main bronchus. It appears the patient has advanced disease, prognosis poor. . Code Status: No Code Plan * NO CODE * Decision-making: Patient's sister, Barbara Lomax, is the designated health care surrogate decision maker. DaughterJanki is the alternate health care surrogate. * Extensively discussed the process of cardiopulmonary resuscitation ( compressions, medications, cardioversion and intubation/mechanical ventilation) with the patient's sister and healthcare surrogate, Shy Lomax. Shy stated , "I would imagine all her ribs would be broken if we did CPR on her" . She has requested the patient's CODE STATUS be changed to NO CODEDNR/DNI. If the patient declines to the point of cardiopulmonary arrest, she asks that at that point her sister be allowed to pass peacefully and naturally without aggressive intervention. * Goals: Goals remain aggressive up to the point of cardiopulmonary resuscitation * A CT guided biopsy of the lung mass was ordered for 11/03/16 but the patient refused secondary to fatigue and pain. It was rescheduled for today on 2016 but was again postponed pending family meeting with palliative care tomorrow 11/05/16. * Patient/family considering transition to more comfort focused care. * Discussed with patient's nurse (Karen) and oncology PA (Joan Adams). * Tentative family meeting scheduled with Palliative Care tomorrow 11/04/2016 at 11 AM. * Palliative care contact information provided to the patient's sister/HCS ( Shy Lomax). * Palliative care will continue to follow this patient throughout her hospitalization to establish trust, assist with symptom management and clarification of medical treatment goals. . Thank you for the opportunity to participate in the care of Ms. Perales. . Attestation To help prompt me to consider important information that might be impacting today's encounter and assessment, information from prior notes written by myself or my colleagues may have been "brought forward" into today's note. My signature on this note, however, is an attestation that I personally performed the exam, history, and/or decision-making noted today, and, unless otherwise indicated, the interactions with patient, family, and staff as well as the review of records all occurred today. I also attest that the listed assessment and stated plan reflect my best clinical judgment today based on the combination of historical information, prior notes, and today's exam/ interactions. When time spent is documented, it refers only to time spent today by the signer, or if indicated, combined time spent today by collaborating physician/nurse practitioner. . Sallie Pickering Nov 04, 2016 14:37
--- NOTE | 2016-11-04 19:25 | HHI.PR ---
Subjective Remarks 61 YOWF with very large lung mass, mediastinal LN,COPD Had Marking done for radiation Family made her DNR No Bx considering hospice Objective Vital Signs Vital Signs Date Time Temp Pulse Resp B/P Pulse Ox O2 Delivery O2 Flow Rate FiO2 11/04/16 18:00 96 11/04/16 16:00 97.3 100 24 162/85 96 11/04/16 16:00 100 11/04/16 15:57 93 Nasal Cannula 7.00 11/04/16 14:00 101 11/04/16 12:00 102 11/04/16 12:00 98.5 102 20 159/77 100 11/04/16 10:00 108 11/04/16 08:59 100 Partial Rebreather 15.00 11/04/16 08:00 97 11/04/16 08:00 97.8 97 24 182/90 100 11/04/16 06:00 111 11/04/16 04:30 98.7 113 21 125/66 100 11/04/16 04:00 111 11/04/16 04:00 98.7 113 21 184/85 100 11/04/16 02:00 111 11/04/16 00:00 98.7 92 21 132/63 100 11/04/16 00:00 111 11/03/16 22:00 111 11/03/16 21:12 99 Partial Rebreather 13.00 11/03/16 21:05 87 Venturi Mask 6.00 50 11/03/16 20:45 83 Nasal Cannula 2.00 11/03/16 20:06 Nasal Cannula 2.00 11/03/16 20:00 98.3 111 24 107/70 100 11/03/16 20:00 111 I/O 11/03/16 11/03/16 11/03/16 11/04/16 11/04/16 11/04/16 07:00 15:00 23:00 07:00 15:00 23:00 Intake Total 715 ml 840 ml 400 ml 225 ml 238 ml Output Total 200 ml 600 ml 450 ml 525 ml Balance 515 ml 240 ml -50 ml -300 ml 238 ml Intake Oral 280 ml 225 ml 120 ml IV Total 715 ml 560 ml 175 ml 225 ml 118 ml Output Urine Total 200 ml 600 ml 450 ml 525 ml # Voids 1 4 3 5 1 Result Diagram: 11/04/16 1022 11/04/16 0507 A/P Assessment and Plan Large lung mass Medistinal LN compressing Right Pulm art COPD exac HTN Weight loss Dysnoea PLAN: Cont Abx Aerosol nebs Supplement 02 DNR Monitor BP Hospice/ palliative care Arsalan Sosa MD Nov 04, 2016 19:25
[2016-11-04] MEDS ORDERED: REMOVE OLD PATCH T-DERMAL SCH (21:00)
[2016-11-05] VITALS (9 sets, daily range): BP systolic 138–153; BP diastolic 67–77; PULSE 78–118; RESP 16–19; TEMP 97.7–97.9; O2SAT 94–99
[2016-11-05] MEDS: MORPHINE SULFATE 4 MG/ML INJ IV PRN ×4 (00:16→13:01)
[2016-11-05] MEDS: PIPERACIL-TAZO 4.5 GM PREMIX 100 ML IV SCH ×2 (00:17→06:37)
[2016-11-05] MEDS: BUDESONIDE-FORMOTEROL 160/4.5 MCG INHALER INH SCH ×2 (00:17→09:00)
[2016-11-05] MEDS: HEPARIN SODIUM - SQ 10,000 UNITS/ML VIAL SQ SCH (03:15)
[2016-11-05] MEDS: CHLORHEXIDINE GLUCONATE 2 % 1 PACK (2 CLOTHS) TOP SCH (03:16)
[2016-11-05] MEDS: RESP: ALBUTEROL 2.5 MG/IPRATROPIUM 0.5 MG NEB (SCH) INH ×2 (03:34→09:06)
[2016-11-05] MEDS: METOPROLOL TARTRATE 25 MG TAB PO SCH (05:27)
[2016-11-05] MEDS: methylPREDNISolone SOD SUCC 40 MG/1 ML VIAL IV PUSH SCH (05:27)
--- NOTE | 2016-11-05 05:29 | RADRPT ---
EXAM DATE/TIME: 11/05/2016 04:08 [facility] COMPARISON: CHEST SINGLE AP, November 04, 2016, 11:01. INDICATIONS : Evaluate for respiratory failure. MEDICAL HISTORY : None. SURGICAL HISTORY : None. ENCOUNTER: Subsequent ACUITY: 4 - 6 days PAIN SCORE: Non-responsive. LOCATION: chest FINDINGS: The cardiac silhouette is enlarged in transverse diameter. There is right lower lobe atelectasis vers us pneumonia. A moderate size right sided effusion is present. A small left sided effusion is present . CONCLUSION: 1. Cardiomegaly 2. Right lower lobe atelectasis versus pneumonia. The findings are similar to the prior exam. Real Sadler MD on November 05, 2016 at 5:27 Board Certified Radiologist. This report was verified electronically.
[2016-11-05] MEDS: LABETALOL HCL 100 MG/20 ML VIAL IV PUSH PRN (05:34)
[2016-11-05] MEDS: INSULIN NovoLIN REGULAR SUPPLEMENTAL SCALE SQ SCH ×2 (06:48→10:48)
[2016-11-05 07:02] LABS: AUTOMATED NEUTROPHIL # 10.2 TH/MM3 (1.8-7.7); BASOPHIL % 0.1 % (0.0-2.0); HEMATOCRIT 34.3 % (35.0-46.0); HEMO FLAGS DIFF FINAL; LYMPH % 3.4 % (9.0-44.0); LYMPHOCYTE # 0.4 TH/MM3 (1.0-4.8); MEAN CELL VOLUME 92.7 FL (80.0-100.0); MEAN CORPUSCULAR HGB CONC 33.4 % (32.0-36.0); MONO % 3.9 % (0.0-8.0); NEUT % 92.6 % (16.0-70.0); PLATELET COUNT 421 TH/MM3 (150-450); RED CELL DISTRIBUTION WIDTH 16.2 % (11.6-17.2)
[2016-11-05 07:28] LABS: ALT (GPT) 12 U/L (10-53); ANION GAP 7 MEQ/L (5-15); AST (GOT) 19 U/L (15-37); BICARBONATE 35.9 MEQ/L (21.0-32.0); BLOOD UREA NITROGEN 16 MG/DL (7-18); CHLORIDE 97 MEQ/L (98-107); GLOMERULAR FILTRATION RATE 112 ML/MIN (>89); MAGNESIUM 2.3 MG/DL (1.5-2.5); POTASSIUM 3.9 MEQ/L (3.5-5.1); SODIUM (NA) 140 MEQ/L (136-145)
[2016-11-05 07:31] LABS: ALKALINE PHOSPHATASE 116 U/L (45-117); TOTAL BILIRUBIN ADULT 0.4 MG/DL (0.2-1.0)
[2016-11-05 07:34] LABS: CREATINE KINASE 51 U/L (26-192)
[2016-11-05] MEDS: LORazepam 2 MG/ML VIAL IV PRN (08:46)
[2016-11-05] MEDS: SODIUM CHLORIDE 0.9% FLUSH 10 ML FLUSH IV FLUSH SCH (08:47)
[2016-11-05] MEDS ORDERED: NICOTINE 14 MG/24 HR PATCH T-DERMAL SCH (09:00)
[2016-11-05] MEDS ORDERED: DILTIAZEM HCL 25 MG/5 ML VIAL IV ONE (10:15)
--- NOTE | 2016-11-05 10:22 | HHI.CCPN ---
Subjective Remarks/Hospital Course 61-year-old female presents due to shortness of breath. She arrives by EMS. She has a smoking history one pack per day. She reports chest pain for today. Her shortness of breath has steadily worsened. A cough is noted along with hot flashes. Cough is productive of white phlegm. She has no similar history prior to this event. CT of the chest revealed Right lower lobe masses in addition to the extensive metastatic adenopathy within the mediastinum and huge mass or malignant adenopathy in the right hilum. Significant mass effect on the main pulmonary artery and right-sided pulmonary arteries in addition to right main bronchus. 11/03 No events overnight. Patient is lying in bed in no acute resp distress. For CT guided biopsy of lung mass today. On 2L oxygen. 11/04 - overnight. 2 L to 13 L partial nonrebreather. Currently satting in 100 % tonight shortness of breath. States she will have lung biopsy today. Refusing medications however. Subjective 11/05: Nasal cannula wean today. Plan for family meeting at 11 AM with palliative care. Likely transition to hospice. Currently back in atrial fibrillation. Objective Vital Signs Date Time Temp Pulse Resp B/P Pulse Ox O2 Delivery O2 Flow Rate FiO2 11/05/16 09:12 94 Nasal Cannula 6.00 11/05/16 06:00 78 11/05/16 04:00 97.8 18 138/74 11/03/16 21:05 50 Intake and Output 11/04/16 11/04/16 11/05/16 08:00 16:00 00:00 Intake Total 225 ml 238 ml 240 ml Output Total 525 ml Balance -300 ml 238 ml 240 ml Result Diagram: 11/05/16 0530 11/05/16 0550 Other Results ABG Test 11/04/16 10:21 Blood Gas HCO3 32 H mmol/L Blood Gas Base Excess 6.7 H mmol/L Blood Gas Oxygen Saturation 97 % Arterial Blood pH 7.39 Arterial Blood Partial 54 *H mmHg Pressure CO2 Arterial Blood Partial 155 H mmHg Pressure O2 Arterial Blood Oxygen Content 14.7 Vol % Arterial Blood 1.2 % Carboxyhemoglobin Arterial Blood Methemoglobin 1.0 % Blood Gas Hemoglobin 10.5 L G/DL Oxygen Delivery Device PRB Blood Gas Liter Flow 15 L/M Imaging Last Impressions Chest X-Ray 11/05/16 0600 Signed Impressions: Service Date/Time: Saturday, November 05, 2016 04:08 - CONCLUSION: 1. Cardiomegaly 2. Right lower lobe atelectasis versus pneumonia. The findings are similar to the prior exam. Real Sadler MD CT Angiography 11/02/160 Signed Impressions: Service Date/Time: Wednesday, November 02, 2016 00:13 - CONCLUSION: Right lower lobe masses in addition to the extensive metastatic adenopathy within the mediastinum and huge mass or malignant adenopathy in the right hilum. Significant mass effect on the main pulmonary artery and right-sided pulmonary arteries in addition to right main bronchus. Yue Hickey MD Objective Remarks GENERAL: 61-year-old female, critically ill appearing cachectic currently on nc SKIN: Warm and dry. No rash HEAD: Normocephalic. EYES: Pupils equally round and reacted about 2 mm bilaterally. No scleral icterus. No injection or drainage. NECK: Supple, trachea midline. Shotty cervical chain CARDIOVASCULAR: Tachycardic, IR. S1, S2. No S4. Without murmur RESPIRATORY: Diminished breath sounds throughout the lung garrett on the right. Positive end expiratory wheeze bilaterally. GASTROINTESTINAL: Abdomen soft, non-tender, nondistended. Scaphoid abdomen MUSCULOSKELETAL: No redness in peripheral edema. BACK: Nontender without obvious deformity. No CVA tenderness. Neuro: Cranial nerves II through XII grossly intact. Moves all 4 extremities spontaneously to command. Normal sensation A/P Assessment and Plan Neuro/Psych: Acetaminophen for fever Morphine for pain management Monitor neuro status and limit sedatives Will need brain imaging for likely cancer diagnosis Pulm: Acute hypoxemic respiratory failure with likely. Pneumonia Right lung masses Ongoing tobaccoism Continue with oxygen keep sat >92%. Currently on nasal cannula 6 L Duo nebs every 6 hours with albuterol every 2 hours. Dyspnea Solu-Medrol 60mg Q8 Symbicort 160/4.5 2 puffs twice a day CT chest 11/02 revealed subcarinal/right hilar mass effect lymphadenopathy right mass impinging right upper/middle pulmonary arteries. Right main 70%. 2 large right lower lobe lung masses to 3.8 and 2.8 cm. Likely postobstructive pneumonia NIPPV PRN for resp distress. Pulm is following- Dr. Sosa Discontinued lung mass biopsy due to family request Nicotine patch daily CV: Elevated troponin 1.12 PAF currently sinus tach Hypertension Severe pulmonary hypertension Trivial pericardial fusion Monitor HR and BP keep MAP>65mmHg Patient went into Afib with RVR yesterday. Sinus tach yesterday now back in A. fib with RVR Cards is following- Dr. Coleman. Lopressor 25mg Q8 and Prinivil 5 mill grams daily. Cardizem 1. As needed labetalol/hydralazine/Nitropaste for hypertension 2-D echo revealed EF 30%. Global hypokinesis. Severe MR. Moderate AR. Mild TR. Severe pulmonary hypertension with AMOR 67 mmHg Will need gentle diuresis with Lasix /FEN: Hypokalemia Monitor renal function, electrolytes replacement per protocol. GI: Speech Therapy evaluate and treat On Pepcid for GI prophylaxis Jonelle-Colace for bowel regimen ID: Likely postobstructive pneumonia Continue with abx (Zosyn)monitor for signs of infections (Fever, WBC) BC from 11/01 : NGTD Heme: Leukocytosis Normocytic anemia Monitor CBC, Onc is following-Dr. Faustin, Rad onc is following as well patient will likely need radiation treatment and Chemo. Will need imaging of brain, abdomen pelvis once biopsy completed Endo: SSI for glycemic control GI prophylaxis- On Pepcid DVT prophylaxis- On Heparin SQ Level 3 Shahab Kolb MD Nov 05, 2016 10:22
[2016-11-05] MEDS ORDERED: LORazepam 2 MG/ML VIAL IV PUSH ONE ×2 (12:30→15:30)
--- NOTE | 2016-11-05 12:53 | HHI.HCPN ---
Reason for visit a. To assist with evaluation and management of symptoms including: dyspnea, agitation, pain b. To assist medical decision maker(s) with: better understanding of current medical conditions; weighing benefits/burdens of medical treatment options; making medical treatment decisions. . Subjective/Interval History Ms. Perales is a 61-year-old female who presented to [facility] on 11/01/2016 for evaluation of shortness of breath and chest pain. Patient's past medical history includes hypertension and MRSA+ wound in 2016. She is an active smoker with a 30+ pack year history. Patient reported moderate, generalized chest pain that was intermittent with no provocative factors. Patient also reported a productive cough with white phlegm, dyspnea on exertion and orthopenia. Both Dr. Faustin (medical oncology) and Dr. Alvarez (radiation oncology) were consulted to evaluate this patient due recent CTA findings, highly suspicious for bronchogenic carcinoma. There are 2 separate masses in the right lower lobe measuring 3.8 and 2.8 cm in size, the main pulmonary artery is compressed by nearly 70%. CT guided biopsy of the mediastinal mass was recommended but the patient refused secondary to fatigue pain. HR 105, respirations 19, BP 138/67, oxygen saturation 94% on 6 L via nasal cannula, oral temperature 97.7. Lab work 11/05/2016: =WBC 11.0, hemoglobin 11.5, hematocrit 34.3, platelets 421, neutrophils 92.6% =Sodium: 140, potassium 3.9, chloride 97, carbon dioxide 34.9, glucose 127, calcium 9.4, phosphorus 2.8, magnesium 2.3 =BUN: 16, creatinine 0.55, GFR 112 =Total bilirubin: 0.4, AST 19, ALT 12, alkaline phosphatase 116, total creatine kinase 51 =Troponin: 0.52 =Total protein: 7.2, albumin 2.7 Patient is confused having ongoing shortness of breath with significant anxiety and intermittent pain. PRN morphine and lorazepam are available for symptom management. Morphine 2 mg IV available every 2 hours PRN - 6 doses administered in the past 24 hours; Lorazepam 2 mg IV q4 hours PRN - he doses administered in the past 24 hours. Family has opted to forego further diagnostic testing or aggressive interventions. They have decided to transition to hospice services for symptom management and end-of-life care - requesting care center placement for management of agitation, dyspnea and pain. Advance Directives Health Care Surrogate: Copy in medical record Advance Directive Specifics Health Care Surrogate(s): Patient's sister, Shy Lomax is designated as the healthcare surrogate decision maker. Her daughter, Janki Hays, is the alternate health care surrogate . Significant change in goals: Hospice consult placed. Objective Vital Signs Date Time Temp Pulse Resp B/P Pulse Ox O2 Delivery O2 Flow Rate FiO2 11/05/16 09:12 94 Nasal Cannula 6.00 11/05/16 06:00 78 11/05/16 04:00 98 11/05/16 04:00 97.8 98 18 138/74 95 11/05/16 02:00 93 11/05/16 00:00 96 11/05/16 00:00 97.7 96 17 153/77 99 11/04/16 22:00 92 11/04/16 20:44 96 Nasal Cannula 6.00 11/04/16 20:00 97 11/04/16 20:00 97.9 97 23 167/80 100 11/04/16 18:00 96 11/04/16 16:00 97.3 100 24 162/85 96 11/04/16 16:00 100 11/04/16 15:57 93 Nasal Cannula 7.00 11/04/16 14:00 101 Intake & Output 11/05/16 11/05/16 07:00 19:00 Intake Total 580 ml Balance 580 ml Intake Oral 480 ml IV Total 100 ml # Voids 2 . Physical Exam CONSTITUTIONAL/GENERAL: This is a cachectic, elderly female patient experiencing moderate respiratory distress TUBES/LINES/DRAINS: PIV 1 SKIN: No jaundice, rashes, or lesions. Ecchymoses on upper extremities. No wounds seen anteriorly. Skin temperature appropriate. Not diaphoretic. HEAD: Atraumatic. Normocephalic. EYES: Pupils equal and round and reactive. No scleral icterus. No injection or drainage. Fundi not examined. ENT: Hearing grossly normal. Nose without bleeding or purulent drainage. NECK: Trachea midline. CARDIOVASCULAR: Tachycardic. Regular rhythm without murmurs, gallops, or rubs. RESPIRATORY/CHEST: Breath sounds diminished bilaterally, right greater than left. GASTROINTESTINAL: Abdomen soft, non-tender, nondistended. GENITOURINARY: Without palpable bladder distension. MUSCULOSKELETAL: No obvious deformities. Extremities without clubbing, cyanosis , or edema. LYMPHATICS: No palpable cervical or supraclavicular adenopathy. NEUROLOGICAL: Confused, agitated. Responds to some questions with 12 word answers, follows some commands. PSYCHIATRIC: No apparent hallucinations or other psychotic thought process. . Diagnostic Tests Laboratory Laboratory Tests Test 11/02/16 11/02/16 11/03/16 11/03/16 13:06 17:39 03:33 11:46 Nasal Screen MRSA (PCR) MRSA NOT DETECTED (NOT DETECT) White Blood Count 16.6 TH/MM3 16.1 TH/MM3 (4.0-11.0) (4.0-11.0) Red Blood Count 3.40 MIL/MM3 3.61 MIL/MM3 (4.00-5.30) (4.00-5.30) Hemoglobin 10.2 GM/DL 10.9 GM/DL (11.6-15.3) (11.6-15.3) Hematocrit 31.6 % 33.4 % (35.0-46.0) (35.0-46.0) Mean Corpuscular Volume 92.9 FL 92.4 FL (80.0-100.0) (80.0-100.0) Mean Corpuscular Hemoglobin 29.9 PG 30.1 PG (27.0-34.0) (27.0-34.0) Mean Corpuscular Hemoglobin 32.2 % 32.6 % Concent (32.0-36.0) (32.0-36.0) Red Cell Distribution Width 16.1 % 16.0 % (11.6-17.2) (11.6-17.2) Platelet Count 420 TH/MM3 428 TH/MM3 (150-450) (150-450) Mean Platelet Volume 9.3 FL 9.3 FL (7.0-11.0) (7.0-11.0) Neutrophils (%) (Auto) 75.1 % 95.8 % (16.0-70.0) (16.0-70.0) Lymphocytes (%) (Auto) 2.3 % 3.1 % (9.0-44.0) (9.0-44.0) Monocytes (%) (Auto) 21.4 % 1.0 % (0.0-8.0) (0.0-8.0) Eosinophils (%) (Auto) 0.9 % (0.0-4.0) 0.0 % (0.0-4.0) Basophils (%) (Auto) 0.3 % (0.0-2.0) 0.1 % (0.0-2.0) Neutrophils # (Auto) 12.5 TH/MM3 15.4 TH/MM3 (1.8-7.7) (1.8-7.7) Lymphocytes # (Auto) 0.4 TH/MM3 0.5 TH/MM3 (1.0-4.8) (1.0-4.8) Monocytes # (Auto) 3.6 TH/MM3 0.2 TH/MM3 (0-0.9) (0-0.9) Eosinophils # (Auto) 0.2 TH/MM3 0.0 TH/MM3 (0-0.4) (0-0.4) Basophils # (Auto) 0.0 TH/MM3 0.0 TH/MM3 (0-0.2) (0-0.2) CBC Comment AUTO DIFF DIFF FINAL Differential Comment AUTO DIFF CONFIRMED Platelet Estimate HIGH (NORMAL) Platelet Morphology Comment NORMAL (NORMAL) Red Cell Morphology Comment NORMAL (NORMAL) Sodium Level 134 MEQ/L 135 MEQ/L (136-145) (136-145) Potassium Level 4.3 MEQ/L 3.4 MEQ/L (3.5-5.1) (3.5-5.1) Chloride Level 98 MEQ/L 95 MEQ/L (98-107) (98-107) Carbon Dioxide Level 26.5 MEQ/L 28.0 MEQ/L (21.0-32.0) (21.0-32.0) Anion Gap 10 MEQ/L (5-15) 12 MEQ/L (5-15) Blood Urea Nitrogen 8 MG/DL (7-18) 8 MG/DL (7-18) Creatinine 0.41 MG/DL 0.40 MG/DL (0.50-1.00) (0.50-1.00) Estimat Glomerular Filtration 157 ML/MIN 162 ML/MIN Rate (>89) (>89) Random Glucose 96 MG/DL 122 MG/DL (74-106) (74-106) Calcium Level 8.8 MG/DL 8.8 MG/DL (8.5-10.1) (8.5-10.1) Phosphorus Level 2.2 MG/DL 2.4 MG/DL 2.0 MG/DL (2.5-4.9) (2.5-4.9) (2.5-4.9) Magnesium Level 1.7 MG/DL 2.0 MG/DL (1.5-2.5) (1.5-2.5) Total Bilirubin 0.4 MG/DL 0.3 MG/DL (0.2-1.0) (0.2-1.0) Aspartate Amino Transf 47 U/L (15-37) 29 U/L (15-37) (AST/SGOT) Alanine Aminotransferase 12 U/L (10-53) 12 U/L (10-53) (ALT/SGPT) Alkaline Phosphatase 131 U/L 127 U/L (45-117) (45-117) Troponin I 0.87 NG/ML 1.12 NG/ML (0.02-0.05) (0.02-0.05) B-Type Natriuretic Peptide 746 PG/ML (0-100) Total Protein 7.1 GM/DL 7.2 GM/DL (6.4-8.2) (6.4-8.2) Albumin 2.5 GM/DL 2.7 GM/DL (3.4-5.0) (3.4-5.0) Prothrombin Time 12.0 SEC (9.8-11.6) Prothromb Time International 1.1 RATIO Ratio Test 11/03/16 11/04/16 11/04/16 11/04/16 23:01 05:07 10:21 10:22 Potassium Level 3.6 MEQ/L 3.5 MEQ/L (3.5-5.1) (3.5-5.1) Phosphorus Level 3.0 MG/DL 3.1 MG/DL (2.5-4.9) (2.5-4.9) Sodium Level 136 MEQ/L (136-145) Chloride Level 95 MEQ/L (98-107) Carbon Dioxide Level 31.2 MEQ/L (21.0-32.0) Anion Gap 10 MEQ/L (5-15) Blood Urea Nitrogen 12 MG/DL (7-18) Creatinine 0.47 MG/DL (0.50-1.00) Estimat Glomerular Filtration 134 ML/MIN Rate (>89) Random Glucose 122 MG/DL (74-106) Calcium Level 8.9 MG/DL (8.5-10.1) Magnesium Level 2.1 MG/DL (1.5-2.5) Blood Gas Puncture Site LT RADIAL Blood Gas Patient Temperature 98.6 Blood Gas HCO3 32 mmol/L (22-26) Blood Gas Base Excess 6.7 mmol/L (-2-2) Blood Gas Oxygen Saturation 97 % (90-100) Arterial Blood pH 7.39 (7.380-7.420) Arterial Blood Partial 54 mmHg (38-42) Pressure CO2 Arterial Blood Partial 155 mmHg Pressure O2 (61-120) Arterial Blood Oxygen Content 14.7 Vol % (12.0-20.0) Arterial Blood 1.2 % (0-4) Carboxyhemoglobin Arterial Blood Methemoglobin 1.0 % (0-2) Blood Gas Hemoglobin 10.5 G/DL (12.0-16.0) Oxygen Delivery Device PRB Blood Gas Liter Flow 15 L/M White Blood Count 13.2 TH/MM3 (4.0-11.0) Red Blood Count 3.46 MIL/MM3 (4.00-5.30) Hemoglobin 10.5 GM/DL (11.6-15.3) Hematocrit 32.0 % (35.0-46.0) Mean Corpuscular Volume 92.6 FL (80.0-100.0) Mean Corpuscular Hemoglobin 30.4 PG (27.0-34.0) Mean Corpuscular Hemoglobin 32.8 % Concent (32.0-36.0) Red Cell Distribution Width 15.9 % (11.6-17.2) Platelet Count 425 TH/MM3 (150-450) Mean Platelet Volume 8.7 FL (7.0-11.0) Neutrophils (%) (Auto) 88.0 % (16.0-70.0) Lymphocytes (%) (Auto) 5.0 % (9.0-44.0) Monocytes (%) (Auto) 6.9 % (0.0-8.0) Eosinophils (%) (Auto) 0.0 % (0.0-4.0) Basophils (%) (Auto) 0.1 % (0.0-2.0) Neutrophils # (Auto) 11.6 TH/MM3 (1.8-7.7) Lymphocytes # (Auto) 0.7 TH/MM3 (1.0-4.8) Monocytes # (Auto) 0.9 TH/MM3 (0-0.9) Eosinophils # (Auto) 0.0 TH/MM3 (0-0.4) Basophils # (Auto) 0.0 TH/MM3 (0-0.2) CBC Comment DIFF FINAL Differential Comment Test 11/04/16 11/05/16 11/05/16 11:30 05:30 05:50 Nasal Screen MRSA (PCR) MRSA NOT DETECTED (NOT DETECT) White Blood Count 11.0 TH/MM3 (4.0-11.0) Red Blood Count 3.70 MIL/MM3 (4.00-5.30) Hemoglobin 11.5 GM/DL (11.6-15.3) Hematocrit 34.3 % (35.0-46.0) Mean Corpuscular Volume 92.7 FL (80.0-100.0) Mean Corpuscular Hemoglobin 31.0 PG (27.0-34.0) Mean Corpuscular Hemoglobin 33.4 % Concent (32.0-36.0) Red Cell Distribution Width 16.2 % (11.6-17.2) Platelet Count 421 TH/MM3 (150-450) Mean Platelet Volume 9.2 FL (7.0-11.0) Neutrophils (%) (Auto) 92.6 % (16.0-70.0) Lymphocytes (%) (Auto) 3.4 % (9.0-44.0) Monocytes (%) (Auto) 3.9 % (0.0-8.0) Eosinophils (%) (Auto) 0.0 % (0.0-4.0) Basophils (%) (Auto) 0.1 % (0.0-2.0) Neutrophils # (Auto) 10.2 TH/MM3 (1.8-7.7) Lymphocytes # (Auto) 0.4 TH/MM3 (1.0-4.8) Monocytes # (Auto) 0.4 TH/MM3 (0-0.9) Eosinophils # (Auto) 0.0 TH/MM3 (0-0.4) Basophils # (Auto) 0.0 TH/MM3 (0-0.2) CBC Comment DIFF FINAL Differential Comment Sodium Level 140 MEQ/L (136-145) Potassium Level 3.9 MEQ/L (3.5-5.1) Chloride Level 97 MEQ/L (98-107) Carbon Dioxide Level 35.9 MEQ/L (21.0-32.0) Anion Gap 7 MEQ/L (5-15) Blood Urea Nitrogen 16 MG/DL (7-18) Creatinine 0.55 MG/DL (0.50-1.00) Estimat Glomerular Filtration 112 ML/MIN Rate (>89) Random Glucose 127 MG/DL (74-106) Calcium Level 9.4 MG/DL (8.5-10.1) Phosphorus Level 2.8 MG/DL (2.5-4.9) Magnesium Level 2.3 MG/DL (1.5-2.5) Total Bilirubin 0.4 MG/DL (0.2-1.0) Aspartate Amino Transf 19 U/L (15-37) (AST/SGOT) Alanine Aminotransferase 12 U/L (10-53) (ALT/SGPT) Alkaline Phosphatase 116 U/L (45-117) Total Creatine Kinase 51 U/L (26-192) Troponin I 0.52 NG/ML (0.02-0.05) Total Protein 7.2 GM/DL (6.4-8.2) Albumin 2.7 GM/DL (3.4-5.0) . Result Diagram: 11/05/16 0530 11/05/16 0550 Imaging Last 72 hours Impressions Chest X-Ray 11/05/16 0600 Signed Impressions: Service Date/Time: Saturday, November 05, 2016 04:08 - CONCLUSION: 1. Cardiomegaly 2. Right lower lobe atelectasis versus pneumonia. The findings are similar to the prior exam. Real Sadler MD Chest X-Ray 11/04/16 0000 Signed Impressions: Service Date/Time: October 11:01 - CONCLUSION: 1. Large mass predominantly right hilar in location with atelectasis of the right middle lower lobe. The atelectasis is new compared to prior exam. There is extensive mediastinal adenopathy. Roscoe Alas MD CT Angiography 11/02/16 2230 Signed Impressions: Service Date/Time: Wednesday, November 02, 2016 00:13 - CONCLUSION: Right lower lobe masses in addition to the extensive metastatic adenopathy within the mediastinum and huge mass or malignant adenopathy in the right hilum. Significant mass effect on the main pulmonary artery and right-sided pulmonary arteries in addition to right main bronchus. Yue Hickey MD . Assessment and Plan Disease Oriented Problem List: (1) Lung mass (2) HTN (hypertension) Symptom Scale: (1) Pain (2) Agitation (3) Dyspnea Pertinent Non-Medical Issues Psychosocial: Patient is originally from [place]. She lives with her daughter and her 3-year-old grandchild. Spiritual: Faith Samia Legal:Patient's sister, Barbara Lomax, is the designated health care surrogate decision maker. DaughterJanki is the alternate health care surrogate. Ethical issues impacting care: No known ethical issues impacting care at this time. . Important Contacts Shy Lomax, sister/[facility]: [phone] Janki Hays, daughter: [phone] . Prognosis Patient is a 61-year-old female who has experienced an acute decline with rapid progression of dyspnea. CTA showing right lower lobe mass in addition to extensive metastatic adenopathy within the mediastinum; huge mass or malignant adenopathy in the right hilum; significant mass effect on the main pulmonary artery and right-sided pulmonary arteries in addition to the right main bronchus. It appears the patient has advanced disease, prognosis poor. . Code Status: No Code Plan * NO CODE * Decision-making: Patient's sister, Barbara Lomax, is the designated health care surrogate decision maker. DaughterJanki is the alternate health care surrogate. * Met with patient's sister and daughter to discuss patient's hospital course. Review patient's clinical condition and prognosis. Also present palliative care SPD TECH, Jessica Telles. * Goals: Family has opted to forego further diagnostic testing or aggressive interventions. They have decided to transition to hospice services for symptom management and end-of-life care - requesting care center placement for management of agitation, dyspnea and pain. * Hospice consult pending. Discussed with patient's nurse (Karen), oncology PA (Joan Adams) and sterilization specialist (Dr. Kolb). Spoke with hospice intake to discuss hospice consult. * Palliative care contact information provided to the patient's sister/HCS ( Shy Lomax) and daughter (Janki). * Palliative care will continue to follow this patient throughout her hospitalization to establish trust, assist with symptom management and clarification of medical treatment goals. . Attestation To help prompt me to consider important information that might be impacting today's encounter and assessment, information from prior notes written by myself or my colleagues may have been "brought forward" into today's note. My signature on this note, however, is an attestation that I personally performed the exam, history, and/or decision-making noted today, and, unless otherwise indicated, the interactions with patient, family, and staff as well as the review of records all occurred today. I also attest that the listed assessment and stated plan reflect my best clinical judgment today based on the combination of historical information, prior notes, and today's exam/ interactions. When time spent is documented, it refers only to time spent today by the signer, or if indicated, combined time spent today by collaborating physician/nurse practitioner. . Sallie Pickering Nov 05, 2016 12:53
--- NOTE | 2016-11-05 14:14 | HHI.DS ---
Discharge Summary Admission Date Nov 02, 2016 at 02:45 Discharge Date: Nov 05, 2016 Admitting Diagnosis Lung Masses, Dyspnea (1) Lung mass ICD Code: R91.8 Diagnosis: Principal (2) Acute respiratory failure ICD Code: J96.00 Diagnosis: Principal (3) Atrial fibrillation with rapid ventricular response ICD Code: I48.91 Diagnosis: Principal (4) Elevated troponin ICD Code: R74.8 Diagnosis: Principal (5) HTN (hypertension) ICD Code: I10 Diagnosis: Principal (6) Agitation ICD Code: R45.1 Procedures None Brief History 61-year-old female presents due to shortness of breath. She arrives by EMS. She has a smoking history one pack per day. She reports chest pain for today. Her shortness of breath has steadily worsened. A cough is noted along with hot flashes. Cough is productive of white phlegm. She has no similar history prior to this event. CT of the chest revealed Right lower lobe masses in addition to the extensive metastatic adenopathy within the mediastinum and huge mass or malignant adenopathy in the right hilum. Significant mass effect on the main pulmonary artery and right-sided pulmonary arteries in addition to right main bronchus. CBC/BMP: 11/05/16 0530 11/05/16 0550 Significant Findings Laboratory Tests Test 11/02/16 11/03/16 11/03/16 11/04/16 17:39 03:33 11:46 05:07 White Blood Count 16.6 TH/MM3 16.1 TH/MM3 (4.0-11.0) (4.0-11.0) Red Blood Count 3.40 MIL/MM3 3.61 MIL/MM3 (4.00-5.30) (4.00-5.30) Hemoglobin 10.2 GM/DL 10.9 GM/DL (11.6-15.3) (11.6-15.3) Hematocrit 31.6 % 33.4 % (35.0-46.0) (35.0-46.0) Neutrophils (%) (Auto) 75.1 % 95.8 % (16.0-70.0) (16.0-70.0) Lymphocytes (%) (Auto) 2.3 % 3.1 % (9.0-44.0) (9.0-44.0) Monocytes (%) (Auto) 21.4 % (0.0-8.0) Neutrophils # (Auto) 12.5 TH/MM3 15.4 TH/MM3 (1.8-7.7) (1.8-7.7) Lymphocytes # (Auto) 0.4 TH/MM3 0.5 TH/MM3 (1.0-4.8) (1.0-4.8) Monocytes # (Auto) 3.6 TH/MM3 (0-0.9) Platelet Estimate HIGH (NORMAL) Sodium Level 134 MEQ/L 135 MEQ/L (136-145) (136-145) Creatinine 0.41 MG/DL 0.40 MG/DL 0.47 MG/DL (0.50-1.00) (0.50-1.00) (0.50-1.00) Phosphorus Level 2.2 MG/DL 2.4 MG/DL 2.0 MG/DL (2.5-4.9) (2.5-4.9) (2.5-4.9) Aspartate Amino Transf 47 U/L (15-37) (AST/SGOT) Alkaline Phosphatase 131 U/L 127 U/L (45-117) (45-117) Troponin I 0.87 NG/ML 1.12 NG/ML (0.02-0.05) (0.02-0.05) B-Type Natriuretic Peptide 746 PG/ML (0-100) Albumin 2.5 GM/DL 2.7 GM/DL (3.4-5.0) (3.4-5.0) Prothrombin Time 12.0 SEC (9.8-11.6) Potassium Level 3.4 MEQ/L (3.5-5.1) Chloride Level 95 MEQ/L 95 MEQ/L (98-107) (98-107) Random Glucose 122 MG/DL 122 MG/DL (74-106) (74-106) Test 11/04/16 11/04/16 11/05/16 11/05/16 10:21 10:22 05:30 05:50 Blood Gas HCO3 32 mmol/L (22-26) Blood Gas Base Excess 6.7 mmol/L (-2-2) Arterial Blood Partial 54 mmHg (38-42) Pressure CO2 Arterial Blood Partial 155 mmHg Pressure O2 (61-120) Blood Gas Hemoglobin 10.5 G/DL (12.0-16.0) White Blood Count 13.2 TH/MM3 (4.0-11.0) Red Blood Count 3.46 MIL/MM3 3.70 MIL/MM3 (4.00-5.30) (4.00-5.30) Hemoglobin 10.5 GM/DL 11.5 GM/DL (11.6-15.3) (11.6-15.3) Hematocrit 32.0 % 34.3 % (35.0-46.0) (35.0-46.0) Neutrophils (%) (Auto) 88.0 % 92.6 % (16.0-70.0) (16.0-70.0) Lymphocytes (%) (Auto) 5.0 % 3.4 % (9.0-44.0) (9.0-44.0) Neutrophils # (Auto) 11.6 TH/MM3 10.2 TH/MM3 (1.8-7.7) (1.8-7.7) Lymphocytes # (Auto) 0.7 TH/MM3 0.4 TH/MM3 (1.0-4.8) (1.0-4.8) Chloride Level 97 MEQ/L (98-107) Carbon Dioxide Level 35.9 MEQ/L (21.0-32.0) Random Glucose 127 MG/DL (74-106) Troponin I 0.52 NG/ML (0.02-0.05) Albumin 2.7 GM/DL (3.4-5.0) Imaging Last Impressions Chest X-Ray 11/05/16 0600 Signed Impressions: Service Date/Time: Saturday, November 05, 2016 04:08 - CONCLUSION: 1. Cardiomegaly 2. Right lower lobe atelectasis versus pneumonia. The findings are similar to the prior exam. Real Sadler MD CT Angiography 11/02/16 2230 Signed Impressions: Service Date/Time: Wednesday, November 02, 2016 00:13 - CONCLUSION: Right lower lobe masses in addition to the extensive metastatic adenopathy within the mediastinum and huge mass or malignant adenopathy in the right hilum. Significant mass effect on the main pulmonary artery and right-sided pulmonary arteries in addition to right main bronchus. Yue Hickey MD PE at Discharge GENERAL: 61-year-old female, critically ill appearing cachectic currently on nc SKIN: Warm and dry. No rash HEAD: Normocephalic. EYES: Pupils equally round and reacted about 2 mm bilaterally. No scleral icterus. No injection or drainage. NECK: Supple, trachea midline. Shotty cervical chain CARDIOVASCULAR: Tachycardic, IR. S1, S2. No S4. Without murmur RESPIRATORY: Diminished breath sounds throughout the lung garrett on the right. Positive end expiratory wheeze bilaterally. GASTROINTESTINAL: Abdomen soft, non-tender, nondistended. Scaphoid abdomen MUSCULOSKELETAL: No redness in peripheral edema. BACK: Nontender without obvious deformity. No CVA tenderness. Neuro: Cranial nerves II through XII grossly intact. Moves all 4 extremities spontaneously to command. Normal sensation Transfer Summary Neuro/Psych: Acetaminophen for fever Morphine for pain management Monitor neuro status and limit sedatives Will need brain imaging for likely cancer diagnosis Pulm: Acute hypoxemic respiratory failure with likely. Pneumonia Right lung masses Ongoing tobaccoism Continue with oxygen keep sat >92%. Currently on nasal cannula 6 L Duo nebs every 6 hours with albuterol every 2 hours. Dyspnea Solu-Medrol 60mg Q8 Symbicort 160/4.5 2 puffs twice a day CT chest 11/02 revealed subcarinal/right hilar mass effect lymphadenopathy right mass impinging right upper/middle pulmonary arteries. Right main 70%. 2 large right lower lobe lung masses to 3.8 and 2.8 cm. Likely postobstructive pneumonia NIPPV PRN for resp distress. Pulm is following- Dr. Sosa Discontinued lung mass biopsy due to family request Nicotine patch daily CV: Elevated troponin 1.12 PAF currently sinus tach Hypertension Severe pulmonary hypertension Trivial pericardial fusion Monitor HR and BP keep MAP>65mmHg Patient went into Afib with RVR yesterday. Sinus tach yesterday now back in A. fib with RVR Cards is following- Dr. Coleman. Lopressor 25mg Q8 and Prinivil 5 mill grams daily. Cardizem 1. As needed labetalol/hydralazine/Nitropaste for hypertension 2-D echo revealed EF 30%. Global hypokinesis. Severe MR. Moderate AR. Mild TR. Severe pulmonary hypertension with AMOR 67 mmHg Will need gentle diuresis with Lasix /FEN: Hypokalemia Monitor renal function, electrolytes replacement per protocol. GI: Speech Therapy evaluate and treat On Pepcid for GI prophylaxis Jonelle-Colace for bowel regimen ID: Likely postobstructive pneumonia Continue with abx (Zosyn)monitor for signs of infections (Fever, WBC) BC from 11/01 : NGTD Heme: Leukocytosis Normocytic anemia Monitor CBC, Onc is following-[facility] onc is following as well patient will likely need radiation treatment and Chemo. Will need imaging of brain, abdomen pelvis once biopsy completed Endo: SSI for glycemic control GI prophylaxis- On Pepcid DVT prophylaxis- On Heparin SQ Time spent during today with discharge 35 minutes including reviewing of all medical records, medications and discussion with hospice and patient's family Hospital Course 61-year-old female presents due to shortness of breath. She arrives by EMS. She has a smoking history one pack per day. She reports chest pain for today. Her shortness of breath has steadily worsened. A cough is noted along with hot flashes. Cough is productive of white phlegm. She has no similar history prior to this event. CT of the chest revealed Right lower lobe masses in addition to the extensive metastatic adenopathy within the mediastinum and huge mass or malignant adenopathy in the right hilum. Significant mass effect on the main pulmonary artery and right-sided pulmonary arteries in addition to right main bronchus. 11/03 No events overnight. Patient is lying in bed in no acute resp distress. For CT guided biopsy of lung mass today. On 2L oxygen. 11/04 - overnight. 2 L to 13 L partial nonrebreather. Currently satting in 100 % tonight shortness of breath. States she will have lung biopsy today. Refusing medications however. 11/05: Nasal cannula wean today. Plan for family meeting at 11 AM with palliative care. Likely transition to hospice. Currently back in atrial fibrillation. After long discussion to palliative care team at noon, decision made to make patient goals of care comfort only. Patient presented to hospice care center later this afternoon. Pt Condition on Discharge: Guarded Discharge Disposition: Hospice/Med Facility Discharge Instructions DIET: Follow Instructions for: As Tolerated, No Restrictions Activities you can perform: Continue Bedrest Shahab Kolb MD Nov 05, 2016 14:14
[2016-11-05] MEDS ORDERED: MORPHINE SULFATE 4 MG/ML INJ IV PUSH ONE (15:30)
== END 2016-11-05 16:20 | disposition hospice, inpatient (51) | DRG 180 ==
LOC: NEPE 21:32 → NEDA 11-02 02:45 → NEDH 11-02 08:23 → HIMN 11-02 12:30
PROVIDERS: ADMIT Internal Medicine Critical Care Medicine; ATTEND Internal Medicine Critical Care Medicine
DX: C34.31 Malignant neoplasm of lower lobe, right bronchus or lung (principal); J96.01 Acute respiratory failure with hypoxia; J18.8 Other pneumonia, unspecified organism; R64 Cachexia; C78.1 Secondary malignant neoplasm of mediastinum; I27.2 Other secondary pulmonary hypertension; J44.0 Chronic obstructive pulmonary disease with (acute) lower respiratory infection; J44.1 Chronic obstructive pulmonary disease with (acute) exacerbation; Z68.1 Body mass index [BMI] 19.9 or less, adult; I48.0 Paroxysmal atrial fibrillation; I10 Essential (primary) hypertension; F17.210 Nicotine dependence, cigarettes, uncomplicated; Z66 Do not resuscitate; D64.9 Anemia, unspecified; E87.6 Hypokalemia; Z86.14 Personal history of Methicillin resistant Staphylococcus aureus infection; Z51.5 Encounter for palliative care
CPT/HCPCS: 36600; 71010; 71275; 77263; 77334; 80048; 80053; 82550; 82805; 82948; 83735; 83880; 84100; 84132; 84484; 85025; 85610; 85730; 87040; 87641; 93005; 93306; 94640; 94664; 96365; 96366; 96375; 99222; J0360; J0456; J0696; J1160; J1644; J1940; J2060; J2270; J2543; J2920; J7030; J7050; Q9967